=== PATIENT | female | born 1960 | race Caucasian/White ===

== ENCOUNTER 2017-07-03 09:06 | Emergency (ER) | payer OTHER, BC ==
[2017-07-03] MEDS: KETOROLAC 15 MG INJ IM (09:46)
== END 2017-07-03 11:30 | disposition home or self-care (01) ==
LOC: FTE 09:06
DX: M25.562 Pain in left knee (principal); I10 Essential (primary) hypertension
CPT/HCPCS: 29505; 73562; 73610; 73630-LT; 96372; 99284-25

== ENCOUNTER 2017-07-14 13:18 | Inpatient (IN) | payer OTHER ==
[2017-07-14] MEDS: AZITHROMYCIN 500MG/NS (PMX) 250 ML IV (14:03)
[2017-07-14 14:24] LABS: ABNORMAL IP MESSAGE 1; HEMATOCRIT 33.6 % (37.0-47.0); HEMOGLOBIN 11.3 g/dl (12.0-16.0); MEAN CORPUSCULAR HEMOGLOBIN 30.8 pg (29.0-33.0); MEAN CORPUSCULAR HGB CONC 33.6 g/dl (32.0-37.0); MEAN CORPUSCULAR VOLUME 91.6 fl (82.0-101.0); MEAN PLATELET VOLUME 10.1 fl (7.4-10.4); PLATELET COUNT 383 10^3/UL (140-415); RED BLOOD COUNT 3.67 10^6/ul (4.20-5.40); RED CELL DISTRIBUTION WIDTH 12.7 % (11.5-14.5)
[2017-07-14 14:25] LABS: ADD MAN DIFF? YES
[2017-07-14] MEDS: KETOROLAC 15 MG INJ IV (14:29)
[2017-07-14] MEDS: SODIUM CHLORIDE 0.9% 1L BAG IV* (14:29)
[2017-07-14] MEDS: ACETAMINOPHEN 325 MG TAB PO ×3 (14:29→21:35)
[2017-07-14] MEDS: CEFTRIAXONE 1 GM/50 ML (PMX) 50 ML IVPB (14:29)
[2017-07-14 14:33] LABS: ADD UMIC YES; UR ASCORBIC ACID NEGATIVE (NEGATIVE); UR BILIRUBIN (Dip) NEGATIVE (NEGATIVE); UR BLOOD (Dip) NEGATIVE (NEGATIVE); UR CLARITY SLIGHTLY CLOUDY (CLEAR); UR COLOR YELLOW (YELLOW); UR GLUCOSE (Dip) 2+ mg/dL (NEGATIVE); UR KETONES (Dip) NEGATIVE (NEGATIVE); UR LEUKOCYTE ESTERASE (Dip) NEGATIVE Leu/ul (NEGATIVE); UR NITRITE (Dip) NEGATIVE (NEGATIVE); UR RBC 3 /HPF (0-5); UR SPECIFIC GRAVITY (Dip) 1.018 (1.003-1.030); UR SQUAMOUS EPITHELIAL CELL FEW /HPF (FEW); UR TOTAL PROTEIN (Dip) 3+ mg/dl (NEGATIVE); UR UROBILINOGEN (Dip) NEGATIVE (NEGATIVE); UR WBC 13 /HPF (0-5)
[2017-07-14 14:41] LABS: INR 0.97
[2017-07-14 14:42] LABS: PARTIAL THROMBOPLASTIN TIME 30.6 Sec (25.0-35.0)
[2017-07-14 14:45] LABS: ALANINE AMINOTRANSFERASE 34 IU/L (13-69); ALBUMIN 3.4 g/dl (3.3-4.9); ALKALINE PHOSPHATASE 147 IU/L (42-121); ANION GAP 13 (8-16); ASPARTATE AMINO TRANSFERASE 23 IU/L (15-46); BILIRUBIN,INDIRECT 0.1 mg/dl (0-1.1); BILIRUBIN,TOTAL 0.1 mg/dl (0.2-1.3); BLOOD UREA NITROGEN 29 mg/dl (7-20); CALCIUM 8.7 mg/dl (8.4-10.2); CARBON DIOXIDE 28 mmol/L (21-31); CHLORIDE 104 mmol/L (97-110); CREATININE 1.58 mg/dl (0.44-1.00); GLUCOSE 196 mg/dl (70-220); POTASSIUM 4.2 mmol/L (3.5-5.1); SODIUM 141 mmol/L (135-144); TOTAL PROTEIN 6.8 g/dl (6.1-8.1)
[2017-07-14 14:45] LABS: LACTIC ACID 1.1 mmol/L (0.5-2.0)
[2017-07-14] MEDS: ALBUTEROL 0.5% (NEB) 2.5 MG/0.5 ML AMP INH (14:56)
[2017-07-14 14:57] LABS: BAND NEUTROPHILS #M 0.5 10^3/ul (0.0-0.6); BAND NEUTROPHILS % (M) 2 % (0-4); LYMPHOCYTES # 1.1 10^3/ul (0.8-2.9); LYMPHOCYTES #M 1.1 10^3/ul (0.8-2.9); LYMPHOCYTES % (M) 4 % (15-51); MONOCYTE # 1.1 10^3/ul (0.3-0.9); MONOCYTE #M 1.1 10^3/ul (0.3-0.9); MONOCYTES % (M) 4 % (0-11); SEG NEUT #M 25.3 10^3/ul (1.7-7.5); SEGMENTED NEUTROPHILS (M) % 90 % (39-77)
[2017-07-14 14:58] LABS: TROPONIN-I < 0.012 ng/ml (0.00-0.12)
[2017-07-14 16:55] LABS: LACTIC ACID 2.7 mmol/L (0.5-2.0)
[2017-07-14] MEDS: HYDROCODONE/APAP (5/325) TAB PO (17:21)
[2017-07-14] MEDS ORDERED: GLUCOSE GEL 15 GRAM TUBE PO ×2 (17:30)
[2017-07-14] MEDS ORDERED: ONDANSETRON 4 MG INJ IV ×2 (17:30)
[2017-07-14] MEDS ORDERED: GLUCAGON 1 MG INJ IM (17:30)
[2017-07-14] MEDS ORDERED: morphine 2 MG INJ IV (17:30)
[2017-07-14] MEDS ORDERED: DEXTROSE 50% 50 ML SYRINGE IV ×2 (17:30)
[2017-07-14] MEDS ORDERED: NACL 0.9% 3 ML SYG IV (17:30)
[2017-07-14] MEDS ORDERED: ACETAMINOPHEN 325 MG TAB PO (17:30)
[2017-07-14] MEDS ORDERED: LORAZEPAM 0.5 MG TAB PO (17:30)
[2017-07-14] MEDS ORDERED: SOD CHLORIDE 0.9% 1,000 ML IV (17:30)
[2017-07-14] MEDS ORDERED: GLUCOSE GEL 15 GRAM TUBE BUCCAL (17:30)
[2017-07-14 17:33] LABS: HEMOGLOBIN A1C 7.5 % (0-5.9)
[2017-07-14 17:39] LABS: B-TYPE NATRIURETIC PEPTIDE 5190 PG/ML (0-125)
[2017-07-14 17:45] LABS: FREE T4 (FREE THYROXINE) 1.05 ng/dl (0.64-1.79)
[2017-07-14 17:55] LABS: URIC ACID 4.2 mg/dl (3.1-7.9)
[2017-07-14] MEDS: INSULIN ASPART [NOVOLOG] 3 ML PEN SC ×3 (18:40→21:46)
[2017-07-14 18:55] LABS: LACTIC ACID 3.7 mmol/L (0.5-2.0)
[2017-07-14] MEDS: HYPOGLYCEMIA PROTOCOL when Glucose is <70 mg/dL or symptomatic <90 mg/dL. XX (19:30)
[2017-07-14] MEDS: Discontinue current oral sulfonylureas (glyburide, glipizide, and/or glimepiride) prior to XX (19:30)
[2017-07-14] MEDS: GABAPENTIN 300 MG CAP PO (21:36)
[2017-07-14] MEDS: NIFEdipine (XL) 60 MG TAB PO (21:37)
[2017-07-14] MEDS: CHLORDIAZEPOXIDE 25 MG CAP PO (21:44)
[2017-07-14] MEDS: INSULIN GLARGINE [LANtus] 3 ML PEN SC (21:46)
[2017-07-14] MEDS: HEPARIN 5,000 UNIT/0.5 ML VIAL SC (21:48)
[2017-07-14] MEDS: ALBUTEROL/IPRATROPIUM (NEB) 3 ML AMP HHN (22:25)
[2017-07-14 22:35] LABS: LACTIC ACID 1.6 mmol/L (0.5-2.0)
[2017-07-14] MEDS: GUAIFENESIN/CODEINE 5ML CUP PO (23:33)
[2017-07-15] MEDS: ACCU-CHEK XX (02:37)
[2017-07-15 05:36] LABS: ADD MAN DIFF? NO
[2017-07-15 05:39] LABS: WHITE BLOOD COUNT 22.3 10^3/ul (4.8-10.8)
[2017-07-15 05:39] LABS: BASOPHIL # 0.1 10^3/ul (0.0-0.1); BASOPHILS % 0.4 % (0.0-2.0); EOSINOPHILS # 0.1 10^3/ul (0.0-0.5); EOSINOPHILS % 0.5 % (0.0-7.0); HEMATOCRIT 30.5 % (37.0-47.0); HEMOGLOBIN 9.9 g/dl (12.0-16.0); LYMPHOCYTES # 1.9 10^3/ul (0.8-2.9); LYMPHOCYTES % 8.7 % (15.0-51.0); MEAN CORPUSCULAR HEMOGLOBIN 30.7 pg (29.0-33.0); MEAN CORPUSCULAR HGB CONC 32.5 g/dl (32.0-37.0); MEAN CORPUSCULAR VOLUME 94.4 fl (82.0-101.0); MEAN PLATELET VOLUME 10.6 fl (7.4-10.4); MONOCYTE # 1.3 10^3/ul (0.3-0.9); MONOCYTES % 5.9 % (0.0-11.0); NEUTROPHIL # 18.6 10^3/ul (1.6-7.5); NEUTROPHILS % 83.5 % (39.0-77.0); PLATELET COUNT 331 10^3/UL (140-415); RED BLOOD COUNT 3.23 10^6/ul (4.20-5.40); RED CELL DISTRIBUTION WIDTH 12.8 % (11.5-14.5)
[2017-07-15] MEDS ORDERED: LOPERAMIDE 2 MG CAP PO (06:00)
[2017-07-15] MEDS: LORAZEPAM 2 MG INJ IV (06:00)
[2017-07-15] MEDS: HEPARIN 5,000 UNIT/0.5 ML VIAL SC ×3 (06:21→21:42)
[2017-07-15] MEDS: LOPERAMIDE 2 MG CAP PO (06:26)
[2017-07-15 06:38] LABS: ALANINE AMINOTRANSFERASE 29 IU/L (13-69); ALBUMIN 2.9 g/dl (3.3-4.9); ALBUMIN/GLOBULIN RATIO 0.93; ALKALINE PHOSPHATASE 124 IU/L (42-121); ANION GAP 12 (8-16); ASPARTATE AMINO TRANSFERASE 18 IU/L (15-46); BLOOD UREA NITROGEN 33 mg/dl (7-20); CALCIUM 8.3 mg/dl (8.4-10.2); CARBON DIOXIDE 26 mmol/L (21-31); CHLORIDE 108 mmol/L (97-110); CREATININE 1.76 mg/dl (0.44-1.00); GLUCOSE 255 mg/dl (70-220); POTASSIUM 3.9 mmol/L (3.5-5.1); SODIUM 142 mmol/L (135-144)
[2017-07-15 06:40] LABS: CHOL/HDL RATIO 2.7 RATIO; CHOLESTEROL 156 mg/dl (100-200); HDL CHOLESTEROL 57 mg/dl (37-92); LDL CHOLESTEROL,CALCULATED 66 mg/dl; MAGNESIUM 1.9 mg/dl (1.7-2.5); TRIGLYCERIDES 164 mg/dl (0-149)
[2017-07-15 06:40] LABS: PHOSPHORUS 5.3 mg/dl (2.5-4.9)
[2017-07-15] MEDS: CHLORDIAZEPOXIDE 25 MG CAP PO ×3 (08:29→21:39)
[2017-07-15] MEDS: NIFEdipine (XL) 60 MG TAB PO (08:30)
[2017-07-15] MEDS: THIAMINE 100 MG TAB PO (08:30)
[2017-07-15] MEDS: GABAPENTIN 300 MG CAP PO ×3 (08:30→21:39)
[2017-07-15] MEDS: FOLIC ACID 1 MG TAB PO (08:30)
[2017-07-15] MEDS: HYDROCODONE/APAP (5/325) TAB PO ×2 (08:37→14:47)
[2017-07-15] MEDS: INSULIN ASPART [NOVOLOG] 3 ML PEN SC ×7 (08:46→21:41)
[2017-07-15] MEDS: CEFTRIAXONE 1 GM/50 ML (PMX) 50 ML IVPB (13:25)
[2017-07-15] MEDS: AZITHROMYCIN 500MG/NS (PMX) 250 ML IVPB (15:11)
[2017-07-15] MEDS: GUAIFENESIN 20 MG/ML 5ML CUP PO ×2 (15:20→19:43)
[2017-07-15] MEDS: SOD CHLORIDE 0.9% 500 ML IV (16:31)
[2017-07-15 17:45] LABS: HAAIG REFLEX REFLEX FILED
[2017-07-15 19:31] LABS: HEPATITIS B SURFACE ANTIGEN NEGATIVE (NEGATIVE)
[2017-07-15] MEDS: morphine LIQ (10 MG/5 ML) CUP PO (19:48)
[2017-07-15 19:49] LABS: HEPATITIS B CORE ANTIBODY NEGATIVE (NEGATIVE); HEPATITIS C VIRAL ANTIBODY NEGATIVE (NEGATIVE)
[2017-07-15] MEDS: ALBUTEROL/IPRATROPIUM (NEB) 3 ML AMP HHN ×2 (20:06→21:30)
[2017-07-15 20:31] LABS: Allen Test ACCEPTAB; Arterial Base Excess -4.4 mmol/L (-3.0-3); Arterial Blood Gas Oxygen Sat 92.9 mmHG (95.0-98.0); Arterial COHb 0.1 % (0.0-3.0); Arterial Fraction of Oxyhgb 92.7 % (93.0-99.0); Arterial HCO3 21.3 mmol/L (22.0-26.0); Arterial MetHb 0.1 % (0.0-1.5); Arterial Total Hemglobin 11.9 g/dl (12.0-18.0); Arterial pCO2 41.8 mmhg (35-45); MODE MASK - NRB; Site Right Radial
[2017-07-15] MEDS: ACETYLCYSTEINE 20% 4 ML VIAL NEB (21:31)
[2017-07-15] MEDS: INSULIN GLARGINE [LANtus] 3 ML PEN SC (21:42)
[2017-07-15] MEDS: METHYLPREDNISOLONE 125 MG INJ IV (23:13)
[2017-07-16 00:06] LABS: SODIUM,URINE RANDOM 14 mmol/L (30-90)
[2017-07-16] MEDS: ACETYLCYSTEINE 20% 4 ML VIAL NEB ×2 (00:56→05:08)
[2017-07-16] MEDS: ALBUTEROL/IPRATROPIUM (NEB) 3 ML AMP HHN ×9 (00:56→21:54)
[2017-07-16] MEDS: ACCU-CHEK XX (02:00)
[2017-07-16 05:34] LABS: ADD MAN DIFF? NO
[2017-07-16 05:39] LABS: WHITE BLOOD COUNT 18.3 10^3/ul (4.8-10.8)
[2017-07-16 05:39] LABS: BASOPHILS % 0.1 % (0.0-2.0); HEMATOCRIT 29.1 % (37.0-47.0); HEMOGLOBIN 9.3 g/dl (12.0-16.0); LYMPHOCYTES % 5.5 % (15.0-51.0); MEAN CORPUSCULAR HEMOGLOBIN 29.8 pg (29.0-33.0); MEAN CORPUSCULAR VOLUME 93.3 fl (82.0-101.0); MEAN PLATELET VOLUME 10.4 fl (7.4-10.4); MONOCYTE # 0.3 10^3/ul (0.3-0.9); MONOCYTES % 1.6 % (0.0-11.0); NEUTROPHIL # 16.7 10^3/ul (1.6-7.5); NEUTROPHILS % 91.3 % (39.0-77.0); PLATELET COUNT 339 10^3/UL (140-415); RED BLOOD COUNT 3.12 10^6/ul (4.20-5.40); RED CELL DISTRIBUTION WIDTH 12.9 % (11.5-14.5)
[2017-07-16 05:53] LABS: ANION GAP 18 (8-16); BLOOD UREA NITROGEN 43 mg/dl (7-20); CALCIUM 8.6 mg/dl (8.4-10.2); CARBON DIOXIDE 20 mmol/L (21-31); CHLORIDE 106 mmol/L (97-110); CREATININE 2.53 mg/dl (0.44-1.00); GLUCOSE 280 mg/dl (70-220); POTASSIUM 5.1 mmol/L (3.5-5.1); SODIUM 139 mmol/L (135-144)
[2017-07-16] MEDS: HEPARIN 5,000 UNIT/0.5 ML VIAL SC ×3 (06:08→21:15)
[2017-07-16] MEDS: INSULIN ASPART [NOVOLOG] 3 ML PEN SC ×8 (08:21→21:21)
[2017-07-16] MEDS: NIFEdipine (XL) 30 MG TAB PO (09:25)
[2017-07-16] MEDS: GUAIFENESIN 20 MG/ML 5ML CUP PO ×2 (09:26→20:51)
[2017-07-16] MEDS: THIAMINE 100 MG TAB PO (09:26)
[2017-07-16] MEDS: CHLORDIAZEPOXIDE 25 MG CAP PO ×3 (09:26→20:51)
[2017-07-16] MEDS: GABAPENTIN 300 MG CAP PO ×3 (09:26→20:51)
[2017-07-16] MEDS: FOLIC ACID 1 MG TAB PO (09:26)
[2017-07-16] MEDS: morphine LIQ (10 MG/5 ML) CUP PO ×2 (09:28→21:07)
[2017-07-16] MEDS: NA BICARBONATE 650 MG TAB PO ×2 (11:27→22:19)
[2017-07-16] MEDS: METHYLPREDNISOLONE 125 MG INJ IV ×3 (11:27→21:17)
[2017-07-16 12:16] LABS: AADO2 Arterial 575.6 mmHg (7.0-24.0); Allen Test ACCEPTAB; Arterial Base Excess -6.2 mmol/L (-3.0-3); Arterial Blood Gas Oxygen Sat 96.2 mmHG (95.0-98.0); Arterial COHb 0.3 % (0.0-3.0); Arterial Fraction of Oxyhgb 95.8 % (93.0-99.0); Arterial MetHb 0.1 % (0.0-1.5); Arterial Total Hemglobin 11.5 g/dl (12.0-18.0); MODE MASK - NRB; Site Left Radial
[2017-07-16] MEDS: CEFTRIAXONE 1 GM/50 ML (PMX) 50 ML IVPB (13:30)
[2017-07-16] MEDS: AZITHROMYCIN 500MG/NS (PMX) 250 ML IVPB (16:19)
[2017-07-16] MEDS: INSULIN GLARGINE [LANtus] 3 ML PEN SC (20:57)
[2017-07-16] MEDS: DEXTROSE 5%-0.45% NACL 1,000 ML IV (22:20)
[2017-07-17] MEDS: ALBUTEROL/IPRATROPIUM (NEB) 3 ML AMP HHN ×6 (01:00→20:51)
[2017-07-17] MEDS: ACCU-CHEK XX (02:08)
[2017-07-17] MEDS: INSULIN ASPART [NOVOLOG] 3 ML PEN SC ×10 (02:20→17:10)
[2017-07-17] MEDS ORDERED: INSULIN ASPART [NOVOLOG] 3 ML PEN SC ×2 (06:00→17:35)
[2017-07-17] MEDS: METHYLPREDNISOLONE 125 MG INJ IV ×2 (06:21→13:31)
[2017-07-17] MEDS: HEPARIN 5,000 UNIT/0.5 ML VIAL SC ×3 (06:23→21:17)
[2017-07-17 08:30] LABS: ADD MAN DIFF? NO
[2017-07-17 08:32] LABS: BASOPHILS % 0.2 % (0.0-2.0); HEMATOCRIT 30.7 % (37.0-47.0); LYMPHOCYTES # 0.9 10^3/ul (0.8-2.9); LYMPHOCYTES % 8.3 % (15.0-51.0); MEAN CORPUSCULAR HEMOGLOBIN 30.3 pg (29.0-33.0); MEAN CORPUSCULAR HGB CONC 32.6 g/dl (32.0-37.0); MEAN PLATELET VOLUME 10.7 fl (7.4-10.4); MONOCYTE # 0.5 10^3/ul (0.3-0.9); MONOCYTES % 4.8 % (0.0-11.0); NEUTROPHILS % 84.3 % (39.0-77.0); PLATELET COUNT 411 10^3/UL (140-415); RED CELL DISTRIBUTION WIDTH 12.4 % (11.5-14.5)
[2017-07-17 08:32] LABS: WHITE BLOOD COUNT 10.7 10^3/ul (4.8-10.8)
[2017-07-17 09:02] LABS: ANION GAP 18 (8-16); BLOOD UREA NITROGEN 57 mg/dl (7-20); CALCIUM 9.1 mg/dl (8.4-10.2); CARBON DIOXIDE 21 mmol/L (21-31); CHLORIDE 106 mmol/L (97-110); GLUCOSE 320 mg/dl (70-220); POTASSIUM 4.1 mmol/L (3.5-5.1); SODIUM 141 mmol/L (135-144)
[2017-07-17] MEDS: NA BICARBONATE 650 MG TAB PO ×3 (09:18→20:37)
[2017-07-17] MEDS: FOLIC ACID 1 MG TAB PO (09:19)
[2017-07-17] MEDS: THIAMINE 100 MG TAB PO (09:19)
[2017-07-17] MEDS: NIFEdipine (XL) 30 MG TAB PO (09:19)
[2017-07-17] MEDS: GABAPENTIN 300 MG CAP PO ×3 (09:19→20:37)
[2017-07-17] MEDS: CHLORDIAZEPOXIDE 25 MG CAP PO ×3 (09:19→20:37)
[2017-07-17 10:18] LABS: AADO2 Arterial 179.1 mmHg (7.0-24.0); Allen Test ACCEPTAB; Arterial Base Excess -5.7 mmol/L (-3.0-3); Arterial Blood Gas Oxygen Sat 95.5 mmHG (95.0-98.0); Arterial COHb 0.3 % (0.0-3.0); Arterial Fraction of Oxyhgb 95.2 % (93.0-99.0); Arterial HCO3 20.6 mmol/L (22.0-26.0); Arterial MetHb 0 % (0.0-1.5); Arterial Total Hemglobin 12.5 g/dl (12.0-18.0); Arterial pCO2 43.5 mmhg (35-45); MODE MASK - SIMPLE; Site Right Radial
[2017-07-17] MEDS: NPH, HUMAN INSULIN ISOPHANE 3ML VIAL SC ×2 (13:26→21:14)
[2017-07-17] MEDS: CEFTRIAXONE 1 GM/50 ML (PMX) 50 ML IVPB (13:30)
[2017-07-17] MEDS: FUROSEMIDE 40 MG INJ IV (13:31)
[2017-07-17] MEDS: DEXTROSE 5%-0.45% NACL 1,000 ML IV (13:32)
[2017-07-17] MEDS: NA BICARBONATE 8.4% 50 ML SYG IV (13:36)
[2017-07-17] MEDS: AZITHROMYCIN 500MG/NS (PMX) 250 ML IVPB (14:18)
[2017-07-17 14:51] LABS: CREATININE, RANDOM URINE 213 mg/dL (20-320); MICROALBUMIN 574.9 mg/dL; MICROALBUMIN/CREATININE RATIO 2699 (<30)
[2017-07-17] MEDS: Insulin NOVOLOG SS MILD Algorithm (SS with meals and bedtime) SC ×2 (17:08→20:41)
[2017-07-17] MEDS: INSULIN GLARGINE [LANtus] 3 ML PEN SC (20:40)
[2017-07-18] MEDS: ALBUTEROL/IPRATROPIUM (NEB) 3 ML AMP HHN ×6 (01:00→20:06)
[2017-07-18] MEDS: ACCUCHECK AT 2AM (Patients on SS coverage) XX (02:00)
[2017-07-18] MEDS: HEPARIN 5,000 UNIT/0.5 ML VIAL SC ×3 (06:21→21:07)
[2017-07-18] MEDS: NPH, HUMAN INSULIN ISOPHANE 3ML VIAL SC ×3 (06:22→21:06)
[2017-07-18] MEDS: Insulin NOVOLOG SS MILD Algorithm (SS with meals and bedtime) SC ×4 (06:32→20:23)
[2017-07-18] MEDS: THIAMINE 100 MG TAB PO (08:13)
[2017-07-18] MEDS: CHLORDIAZEPOXIDE 25 MG CAP PO ×2 (08:13→20:33)
[2017-07-18] MEDS: METHYLPREDNISOLONE 40 MG INJ IV (08:13)
[2017-07-18] MEDS: GABAPENTIN 300 MG CAP PO ×3 (08:13→20:24)
[2017-07-18] MEDS: NIFEdipine (XL) 30 MG TAB PO (08:14)
[2017-07-18] MEDS: NA BICARBONATE 650 MG TAB PO ×2 (08:14→13:20)
[2017-07-18] MEDS: FOLIC ACID 1 MG TAB PO (08:15)
[2017-07-18] MEDS: INSULIN ASPART [NOVOLOG] 3 ML PEN SC ×3 (08:24→17:29)
[2017-07-18 08:39] LABS: AADO2 Arterial 129.4 mmHg (7.0-24.0); Allen Test ACCEPTAB; Arterial Base Excess 0.3 mmol/L (-3.0-3); Arterial Blood Gas Oxygen Sat 94.6 mmHG (95.0-98.0); Arterial COHb 0.3 % (0.0-3.0); Arterial HCO3 24.9 mmol/L (22.0-26.0); Arterial MetHb 0.3 % (0.0-1.5); Arterial Total Hemglobin 11.6 g/dl (12.0-18.0); Arterial pCO2 40.4 mmhg (35-45); MODE NASAL CANNULA; Site Right Radial
[2017-07-18 08:45] LABS: ADD MAN DIFF? NO
[2017-07-18 09:02] LABS: BASOPHILS % 0.2 % (0.0-2.0); HEMATOCRIT 33.4 % (37.0-47.0); LYMPHOCYTES % 14.2 % (15.0-51.0); MEAN CORPUSCULAR HEMOGLOBIN 30.4 pg (29.0-33.0); MEAN CORPUSCULAR HGB CONC 32.9 g/dl (32.0-37.0); MEAN CORPUSCULAR VOLUME 92.3 fl (82.0-101.0); MEAN PLATELET VOLUME 10.5 fl (7.4-10.4); MONOCYTE # 1.1 10^3/ul (0.3-0.9); MONOCYTES % 7.4 % (0.0-11.0); NEUTROPHIL # 10.6 10^3/ul (1.6-7.5); NEUTROPHILS % 74.7 % (39.0-77.0); PLATELET COUNT 475 10^3/UL (140-415); RED BLOOD COUNT 3.62 10^6/ul (4.20-5.40); RED CELL DISTRIBUTION WIDTH 12.3 % (11.5-14.5)
[2017-07-18 09:02] LABS: WHITE BLOOD COUNT 14.1 10^3/ul (4.8-10.8)
[2017-07-18 09:22] LABS: ANION GAP 15 (8-16); BLOOD UREA NITROGEN 57 mg/dl (7-20); CALCIUM 9.3 mg/dl (8.4-10.2); CARBON DIOXIDE 28 mmol/L (21-31); CHLORIDE 107 mmol/L (97-110); CREATININE 1.54 mg/dl (0.44-1.00); GLUCOSE 165 mg/dl (70-220); POTASSIUM 3.7 mmol/L (3.5-5.1); SODIUM 146 mmol/L (135-144)
[2017-07-18] MEDS: HYDROCODONE/APAP (5/325) TAB PO ×2 (11:06→21:59)
[2017-07-18] MEDS: LEVOFLOXACIN 500 MG TAB PO (14:18)
[2017-07-18] MEDS: hydrALAzine 20 MG INJ IV (17:29)
[2017-07-18] MEDS: ACETYLCYSTEINE 20% 4 ML VIAL NEB (20:10)
[2017-07-18] MEDS: INSULIN GLARGINE [LANtus] 3 ML PEN SC (20:24)
[2017-07-19] MEDS: ALBUTEROL/IPRATROPIUM (NEB) 3 ML AMP HHN ×6 (00:51→20:54)
[2017-07-19] MEDS: ACCUCHECK AT 2AM (Patients on SS coverage) XX (02:00)
[2017-07-19] MEDS: LEVOFLOXACIN 500 MG TAB PO (05:32)
[2017-07-19] MEDS: HEPARIN 5,000 UNIT/0.5 ML VIAL SC ×3 (05:33→20:36)
[2017-07-19] MEDS: NPH, HUMAN INSULIN ISOPHANE 3ML VIAL SC (05:34)
[2017-07-19] MEDS: Insulin NOVOLOG SS MILD Algorithm (SS with meals and bedtime) SC ×4 (07:17→20:37)
[2017-07-19 07:58] LABS: ADD MAN DIFF? NO
[2017-07-19 08:04] LABS: WHITE BLOOD COUNT 11.9 10^3/ul (4.8-10.8)
[2017-07-19 08:04] LABS: ABNORMAL IP MESSAGE 1; BASOPHILS % 0.3 % (0.0-2.0); EOSINOPHILS # 0.3 10^3/ul (0.0-0.5); EOSINOPHILS % 2.7 % (0.0-7.0); HEMATOCRIT 32.8 % (37.0-47.0); HEMOGLOBIN 10.7 g/dl (12.0-16.0); LYMPHOCYTES % 33.5 % (15.0-51.0); MEAN CORPUSCULAR HEMOGLOBIN 30.1 pg (29.0-33.0); MEAN CORPUSCULAR HGB CONC 32.6 g/dl (32.0-37.0); MEAN CORPUSCULAR VOLUME 92.4 fl (82.0-101.0); MONOCYTE # 1.1 10^3/ul (0.3-0.9); MONOCYTES % 8.9 % (0.0-11.0); NEUTROPHIL # 5.8 10^3/ul (1.6-7.5); NEUTROPHILS % 48.9 % (39.0-77.0); PLATELET COUNT 467 10^3/UL (140-415); RED BLOOD COUNT 3.55 10^6/ul (4.20-5.40); RED CELL DISTRIBUTION WIDTH 12.4 % (11.5-14.5)
[2017-07-19 08:10] LABS: POSITIVE DIFF @See below
[2017-07-19] MEDS: METHYLPREDNISOLONE 40 MG INJ IV (08:12)
[2017-07-19] MEDS: FOLIC ACID 1 MG TAB PO (08:13)
[2017-07-19] MEDS: THIAMINE 100 MG TAB PO (08:13)
[2017-07-19] MEDS: CHLORDIAZEPOXIDE 25 MG CAP PO (08:13)
[2017-07-19] MEDS: NIFEdipine (XL) 30 MG TAB PO ×2 (08:14→16:22)
[2017-07-19] MEDS: GABAPENTIN 300 MG CAP PO ×3 (08:14→20:20)
[2017-07-19] MEDS: ACETYLCYSTEINE 20% 4 ML VIAL NEB ×2 (08:15→20:54)
[2017-07-19] MEDS: INSULIN ASPART [NOVOLOG] 3 ML PEN SC ×3 (08:15→17:44)
[2017-07-19 08:27] LABS: ANION GAP 12 (8-16); BLOOD UREA NITROGEN 47 mg/dl (7-20); CALCIUM 8.9 mg/dl (8.4-10.2); CARBON DIOXIDE 28 mmol/L (21-31); CHLORIDE 109 mmol/L (97-110); CREATININE 1.43 mg/dl (0.44-1.00); GLUCOSE 167 mg/dl (70-220); POTASSIUM 3.5 mmol/L (3.5-5.1); SODIUM 145 mmol/L (135-144)
[2017-07-19] MEDS: GUAIFENESIN 20 MG/ML 5ML CUP PO (11:53)
[2017-07-19] MEDS: HYDROCODONE/APAP (5/325) TAB PO (11:54)
[2017-07-19] MEDS: hydrALAzine 20 MG INJ IV ×2 (11:55→20:20)
[2017-07-19] MEDS: HYDROCHLOROTHIAZIDE 25 MG TAB PO (17:47)
[2017-07-19] MEDS: INSULIN GLARGINE [LANtus] 3 ML PEN SC (20:37)
[2017-07-20] MEDS: GUAIFENESIN 20 MG/ML 5ML CUP PO ×2 (00:38→21:05)
[2017-07-20] MEDS: HYDROCODONE/APAP (5/325) TAB PO ×2 (00:38→15:58)
[2017-07-20] MEDS: ALBUTEROL/IPRATROPIUM (NEB) 3 ML AMP HHN ×6 (00:53→20:20)
[2017-07-20] MEDS: ACCUCHECK AT 2AM (Patients on SS coverage) XX (01:44)
[2017-07-20 05:02] LABS: WHITE BLOOD COUNT 14.1 10^3/ul (4.8-10.8)
[2017-07-20 05:02] LABS: ABNORMAL IP MESSAGE 1; HEMATOCRIT 32.5 % (37.0-47.0); HEMOGLOBIN 10.6 g/dl (12.0-16.0); MEAN CORPUSCULAR HEMOGLOBIN 29.7 pg (29.0-33.0); MEAN CORPUSCULAR HGB CONC 32.6 g/dl (32.0-37.0); MEAN PLATELET VOLUME 9.8 fl (7.4-10.4); PLATELET COUNT 466 10^3/UL (140-415); RED BLOOD COUNT 3.57 10^6/ul (4.20-5.40); RED CELL DISTRIBUTION WIDTH 12.3 % (11.5-14.5)
[2017-07-20 05:04] LABS: ADD MAN DIFF? YES; POSITIVE DIFF @See below
[2017-07-20] MEDS: HEPARIN 5,000 UNIT/0.5 ML VIAL SC ×3 (05:23→20:57)
[2017-07-20] MEDS: HYDROCHLOROTHIAZIDE 25 MG TAB PO (05:23)
[2017-07-20] MEDS: LEVOFLOXACIN 500 MG TAB PO (05:23)
[2017-07-20 05:35] LABS: ANION GAP 13 (8-16); BLOOD UREA NITROGEN 47 mg/dl (7-20); CALCIUM 8.8 mg/dl (8.4-10.2); CARBON DIOXIDE 28 mmol/L (21-31); CHLORIDE 107 mmol/L (97-110); CREATININE 1.56 mg/dl (0.44-1.00); GLUCOSE 189 mg/dl (70-220); POTASSIUM 3.5 mmol/L (3.5-5.1); SODIUM 144 mmol/L (135-144)
[2017-07-20 05:36] LABS: BAND NEUTROPHILS #M 0.1 10^3/ul (0.0-0.6); BAND NEUTROPHILS % (M) 1 % (0-4); EOSINOPHILS % (M) 2 % (0-7); LYMPHOCYTES #M 4.5 10^3/ul (0.8-2.9); LYMPHOCYTES % (M) 32 % (15-51); METAMYELOCYTES #M 0.1 10^3/ul (0.0-0.0); METAMYELOCYTES %M 1 % (0-0); MONOCYTE #M 0.7 10^3/ul (0.3-0.9); MONOCYTES % (M) 5 % (0-11); MYELOCYTES #M 0.1 10^3/ul (0.0-0.0); MYELOCYTES % (M) 1 % (0-0); PLATELET ESTIMATE INCREASED; POLYCHROMASIA 1+ (0-0); SEG NEUT #M 8.2 10^3/ul (1.6-7.5); SEGMENTED NEUTROPHILS (M) % 58 % (39-77); SMUDGE%M 11 % (0-0)
[2017-07-20] MEDS: Insulin NOVOLOG SS MILD Algorithm (SS with meals and bedtime) SC ×4 (08:54→20:56)
[2017-07-20] MEDS: INSULIN ASPART [NOVOLOG] 3 ML PEN SC ×3 (08:56→18:13)
[2017-07-20] MEDS: GABAPENTIN 300 MG CAP PO ×3 (09:39→20:57)
[2017-07-20] MEDS: THIAMINE 100 MG TAB PO (09:39)
[2017-07-20] MEDS: FOLIC ACID 1 MG TAB PO (09:39)
[2017-07-20] MEDS: NIFEdipine (XL) 60 MG TAB PO (09:40)
[2017-07-20] MEDS: ACETYLCYSTEINE 20% 4 ML VIAL NEB ×2 (10:17→20:30)
[2017-07-20] MEDS ORDERED: hydrALAzine 20 MG INJ IV (17:30)
[2017-07-20] MEDS: INSULIN GLARGINE [LANtus] 3 ML PEN SC (20:56)
[2017-07-21] MEDS: ACCUCHECK AT 2AM (Patients on SS coverage) XX (01:45)
[2017-07-21] MEDS: ALBUTEROL/IPRATROPIUM (NEB) 3 ML AMP HHN ×6 (02:11→20:06)
[2017-07-21] MEDS: HEPARIN 5,000 UNIT/0.5 ML VIAL SC ×3 (05:55→21:12)
[2017-07-21] MEDS: LEVOFLOXACIN 500 MG TAB PO (05:56)
[2017-07-21] MEDS: GUAIFENESIN 20 MG/ML 5ML CUP PO (06:10)
[2017-07-21 06:24] LABS: ABNORMAL IP MESSAGE 1; HEMATOCRIT 36.4 % (37.0-47.0); HEMOGLOBIN 11.7 g/dl (12.0-16.0); MEAN CORPUSCULAR HEMOGLOBIN 30.4 pg (29.0-33.0); MEAN CORPUSCULAR HGB CONC 32.1 g/dl (32.0-37.0); MEAN CORPUSCULAR VOLUME 94.5 fl (82.0-101.0); MEAN PLATELET VOLUME 10.5 fl (7.4-10.4); PLATELET COUNT 507 10^3/UL (140-415); RED BLOOD COUNT 3.85 10^6/ul (4.20-5.40); RED CELL DISTRIBUTION WIDTH 12.5 % (11.5-14.5)
[2017-07-21 06:24] LABS: WHITE BLOOD COUNT 12.7 10^3/ul (4.8-10.8)
[2017-07-21 06:48] LABS: POSITIVE DIFF @See below
[2017-07-21 06:49] LABS: ADD MAN DIFF? YES
[2017-07-21 06:54] LABS: ANION GAP 14 (8-16); BLOOD UREA NITROGEN 43 mg/dl (7-20); CALCIUM 9.3 mg/dl (8.4-10.2); CARBON DIOXIDE 29 mmol/L (21-31); CHLORIDE 106 mmol/L (97-110); CREATININE 1.27 mg/dl (0.44-1.00); GLUCOSE 126 mg/dl (70-220); SODIUM 145 mmol/L (135-144)
[2017-07-21 08:14] LABS: ANISOCYTOSIS 1+ (0-0); BAND NEUTROPHILS #M 0.3 10^3/ul (0.0-0.6); BAND NEUTROPHILS % (M) 3 % (0-4); EOSINOPHILS % (M) 12 % (0-7); ERYTHROBLAST% (NRBC) (M) 1 % (0-0); GIANT THROMBO% (M) 1 % (0-0); LYMPHOCYTES #M 4.5 10^3/ul (0.8-2.9); LYMPHOCYTES % (M) 36 % (15-51); MICROCYTOSIS 1+ (0-0); MONOCYTE #M 0.5 10^3/ul (0.3-0.9); MONOCYTES % (M) 4 % (0-11); MYELOCYTES #M 0.3 10^3/ul (0.0-0.0); MYELOCYTES % (M) 3 % (0-0); PLATELET ESTIMATE INCREASED; POLYCHROMASIA 1+ (0-0); SEG NEUT #M 5.4 10^3/ul (1.6-7.5); SEGMENTED NEUTROPHILS (M) % 42 % (39-77); SMUDGE%M 9 % (0-0)
[2017-07-21] MEDS: Insulin NOVOLOG SS MILD Algorithm (SS with meals and bedtime) SC ×4 (08:15→21:03)
[2017-07-21] MEDS: FOLIC ACID 1 MG TAB PO (08:16)
[2017-07-21] MEDS: GABAPENTIN 300 MG CAP PO ×3 (08:16→20:56)
[2017-07-21] MEDS: INSULIN ASPART [NOVOLOG] 3 ML PEN SC ×3 (08:16→17:26)
[2017-07-21] MEDS: THIAMINE 100 MG TAB PO (08:17)
[2017-07-21] MEDS: NIFEdipine (XL) 60 MG TAB PO (08:17)
[2017-07-21] MEDS: ACETYLCYSTEINE 20% 4 ML VIAL NEB ×2 (09:18→20:05)
[2017-07-21] MEDS: HYDROCODONE/APAP (5/325) TAB PO ×2 (12:13→21:10)
[2017-07-21] MEDS: INSULIN GLARGINE [LANtus] 3 ML PEN SC (21:01)
[2017-07-22] MEDS: ALBUTEROL/IPRATROPIUM (NEB) 3 ML AMP HHN ×6 (01:23→21:12)
[2017-07-22] MEDS: ACCUCHECK AT 2AM (Patients on SS coverage) XX (02:00)
[2017-07-22] MEDS: LEVOFLOXACIN 500 MG TAB PO (05:31)
[2017-07-22] MEDS: HEPARIN 5,000 UNIT/0.5 ML VIAL SC ×3 (05:32→21:52)
[2017-07-22 05:34] LABS: WHITE BLOOD COUNT 12.1 10^3/ul (4.8-10.8)
[2017-07-22 05:34] LABS: ABNORMAL IP MESSAGE 1; HEMATOCRIT 35.5 % (37.0-47.0); HEMOGLOBIN 11.5 g/dl (12.0-16.0); MEAN CORPUSCULAR HEMOGLOBIN 30.4 pg (29.0-33.0); MEAN CORPUSCULAR HGB CONC 32.4 g/dl (32.0-37.0); MEAN CORPUSCULAR VOLUME 93.9 fl (82.0-101.0); MEAN PLATELET VOLUME 9.9 fl (7.4-10.4); PLATELET COUNT 502 10^3/UL (140-415); RED BLOOD COUNT 3.78 10^6/ul (4.20-5.40); RED CELL DISTRIBUTION WIDTH 12.6 % (11.5-14.5)
[2017-07-22] MEDS: HYDROCODONE/APAP (5/325) TAB PO ×3 (05:37→22:51)
[2017-07-22 05:43] LABS: POSITIVE DIFF @See below
[2017-07-22 05:44] LABS: ADD MAN DIFF? YES
[2017-07-22 06:04] LABS: ANION GAP 12 (8-16); BLOOD UREA NITROGEN 42 mg/dl (7-20); CALCIUM 8.8 mg/dl (8.4-10.2); CARBON DIOXIDE 31 mmol/L (21-31); CHLORIDE 105 mmol/L (97-110); GLUCOSE 212 mg/dl (70-220); POTASSIUM 4.2 mmol/L (3.5-5.1); SODIUM 144 mmol/L (135-144)
[2017-07-22] MEDS: Insulin NOVOLOG SS MILD Algorithm (SS with meals and bedtime) SC ×4 (08:11→21:00)
[2017-07-22] MEDS: INSULIN ASPART [NOVOLOG] 3 ML PEN SC ×3 (08:15→17:25)
[2017-07-22] MEDS: GABAPENTIN 300 MG CAP PO ×3 (08:22→20:22)
[2017-07-22] MEDS: FOLIC ACID 1 MG TAB PO (08:22)
[2017-07-22] MEDS: NIFEdipine (XL) 60 MG TAB PO (08:22)
[2017-07-22] MEDS: LOSARTAN 25 MG TAB PO (08:22)
[2017-07-22] MEDS: THIAMINE 100 MG TAB PO (08:22)
[2017-07-22] MEDS: ACETYLCYSTEINE 20% 4 ML VIAL NEB ×2 (08:34→21:12)
[2017-07-22 09:44] LABS: ANISOCYTOSIS 1+ (0-0); EOSINOPHILS % (M) 11 % (0-7); LYMPHOCYTES #M 2.9 10^3/ul (0.8-2.9); LYMPHOCYTES % (M) 24 % (15-51); MICROCYTOSIS 1+ (0-0); MONOCYTE #M 0.9 10^3/ul (0.3-0.9); MONOCYTES % (M) 8 % (0-11); MYELOCYTES #M 0.1 10^3/ul (0.0-0.0); MYELOCYTES % (M) 1 % (0-0); PLATELET ESTIMATE INCREASED; PROMYELOCYTES #M 0.1 10^3/ul (0-0); PROMYELOCYTES % (M) 1 % (0-0); SEGMENTED NEUTROPHILS (M) % 55 % (39-77); SMUDGE%M 8 % (0-0)
[2017-07-22] MEDS: INSULIN GLARGINE [LANtus] 3 ML PEN SC (20:22)
[2017-07-23] MEDS: ALBUTEROL/IPRATROPIUM (NEB) 3 ML AMP HHN ×5 (01:37→18:05)
[2017-07-23] MEDS: ACCUCHECK AT 2AM (Patients on SS coverage) XX (02:00)
[2017-07-23] MEDS: HYDROCODONE/APAP (5/325) TAB PO ×3 (05:30→17:45)
[2017-07-23] MEDS: LEVOFLOXACIN 500 MG TAB PO (05:30)
[2017-07-23] MEDS: HEPARIN 5,000 UNIT/0.5 ML VIAL SC ×2 (05:35→13:47)
[2017-07-23 06:21] LABS: ADD MAN DIFF? NO
[2017-07-23 06:29] LABS: WHITE BLOOD COUNT 11.8 10^3/ul (4.8-10.8)
[2017-07-23 06:29] LABS: BASOPHIL # 0.1 10^3/ul (0.0-0.1); BASOPHILS % 0.5 % (0.0-2.0); EOSINOPHILS # 1.3 10^3/ul (0.0-0.5); EOSINOPHILS % 11.3 % (0.0-7.0); HEMATOCRIT 33.3 % (37.0-47.0); HEMOGLOBIN 10.9 g/dl (12.0-16.0); LYMPHOCYTES # 2.9 10^3/ul (0.8-2.9); LYMPHOCYTES % 24.6 % (15.0-51.0); MEAN CORPUSCULAR HEMOGLOBIN 30.4 pg (29.0-33.0); MEAN CORPUSCULAR HGB CONC 32.7 g/dl (32.0-37.0); MEAN PLATELET VOLUME 9.7 fl (7.4-10.4); MONOCYTE # 0.9 10^3/ul (0.3-0.9); MONOCYTES % 7.2 % (0.0-11.0); NEUTROPHIL # 6.3 10^3/ul (1.6-7.5); PLATELET COUNT 457 10^3/UL (140-415); RED BLOOD COUNT 3.58 10^6/ul (4.20-5.40); RED CELL DISTRIBUTION WIDTH 12.7 % (11.5-14.5)
[2017-07-23 06:54] LABS: MAGNESIUM 1.7 mg/dl (1.7-2.5)
[2017-07-23 06:54] LABS: PHOSPHORUS 5.6 mg/dl (2.5-4.9)
[2017-07-23 06:59] LABS: ANION GAP 12 (8-16); BLOOD UREA NITROGEN 45 mg/dl (7-20); CARBON DIOXIDE 28 mmol/L (21-31); CHLORIDE 107 mmol/L (97-110); CREATININE 1.43 mg/dl (0.44-1.00); GLUCOSE 185 mg/dl (70-220); POTASSIUM 3.9 mmol/L (3.5-5.1); SODIUM 143 mmol/L (135-144)
[2017-07-23] MEDS: Insulin NOVOLOG SS MILD Algorithm (SS with meals and bedtime) SC ×3 (08:16→17:34)
[2017-07-23] MEDS: INSULIN ASPART [NOVOLOG] 3 ML PEN SC ×3 (08:27→17:36)
[2017-07-23] MEDS: LOSARTAN 25 MG TAB PO (08:29)
[2017-07-23] MEDS: GABAPENTIN 300 MG CAP PO ×2 (08:29→12:31)
[2017-07-23] MEDS: NIFEdipine (XL) 60 MG TAB PO (08:29)
[2017-07-23] MEDS: FOLIC ACID 1 MG TAB PO (08:29)
[2017-07-23] MEDS: THIAMINE 100 MG TAB PO (08:29)
[2017-07-23] MEDS: ACETYLCYSTEINE 20% 4 ML VIAL NEB (08:48)
== END 2017-07-23 19:30 | disposition home health service (06) | DRG 871 ==
LOC: PP2 07-20 00:30 → MS4 07-16 15:45 → E/R 13:18 → MS2 17:24
PROVIDERS: Internal Medicine
PROC: 2W3QX1Z Immobilization of Right Lower Leg using Splint (ICD-10-PCS; principal; 2017-07-18)
DX: A41.9 Sepsis, unspecified organism (principal); J96.01 Acute respiratory failure with hypoxia; N17.0 Acute kidney failure with tubular necrosis; K31.84 Gastroparesis; E87.2 Acidosis; J18.9 Pneumonia, unspecified organism; E11.40 Type 2 diabetes mellitus with diabetic neuropathy, unspecified; E11.21 Type 2 diabetes mellitus with diabetic nephropathy; S82.145A Nondisplaced bicondylar fracture of left tibia, initial encounter for closed fracture; R65.20 Severe sepsis without septic shock; E11.319 Type 2 diabetes mellitus with unspecified diabetic retinopathy without macular edema; E11.43 Type 2 diabetes mellitus with diabetic autonomic (poly)neuropathy; R09.02 Hypoxemia; F10.10 Alcohol abuse, uncomplicated; I12.9 Hypertensive chronic kidney disease with stage 1 through stage 4 chronic kidney disease, or unspecified chronic kidney disease; N18.9 Chronic kidney disease, unspecified; W19.XXXA Unspecified fall, initial encounter; Y92.239 Unspecified place in hospital as the place of occurrence of the external cause; S83.242A Other tear of medial meniscus, current injury, left knee, initial encounter
CPT/HCPCS: 36415; 36600; 70450; 71045; 73030-RT; 73110-RT; 73562; 73721; 76775; 80048; 80053; 80061; 81001; 82043; 82803; 82962; 83036; 83605; 83735; 83880; 84100; 84300; 84439; 84443; 84484; 84560; 84703; 85025; 85610; 85730; 86704; 86709; 86803; 87040; 87086; 87340; 87400; 89190; 92526; 92610; 93005; 93306; 93970; 94640; 94644; 94664; 96365; 96366; 96372; 96375; 97116; 97161; 97530; 99291-25

== ENCOUNTER 2017-08-20 11:52 | Emergency (ER) | payer OTHER ==
[2017-08-20 21:06] LABS: ADD MAN DIFF? NO
[2017-08-20 21:07] LABS: BASOPHIL # 0.1 10^3/ul (0.0-0.1); BASOPHILS % 0.8 % (0.0-2.0); EOSINOPHILS # 0.7 10^3/ul (0.0-0.5); EOSINOPHILS % 7.5 % (0.0-7.0); HEMOGLOBIN 10.8 g/dl (12.0-16.0); LYMPHOCYTES # 2.1 10^3/ul (0.8-2.9); LYMPHOCYTES % 22.8 % (15.0-51.0); MEAN CORPUSCULAR HEMOGLOBIN 30.6 pg (29.0-33.0); MEAN CORPUSCULAR HGB CONC 33.8 g/dl (32.0-37.0); MEAN CORPUSCULAR VOLUME 90.7 fl (82.0-101.0); MEAN PLATELET VOLUME 9.7 fl (7.4-10.4); MONOCYTE # 0.8 10^3/ul (0.3-0.9); MONOCYTES % 8.7 % (0.0-11.0); NEUTROPHIL # 5.5 10^3/ul (1.6-7.5); NEUTROPHILS % 59.9 % (39.0-77.0); PLATELET COUNT 377 10^3/UL (140-415); RED BLOOD COUNT 3.53 10^6/ul (4.20-5.40); RED CELL DISTRIBUTION WIDTH 12.6 % (11.5-14.5)
[2017-08-20 21:07] LABS: WHITE BLOOD COUNT 9.2 10^3/ul (4.8-10.8)
[2017-08-20 21:31] LABS: ANION GAP 16 (8-16); BLOOD UREA NITROGEN 56 mg/dl (7-20); CALCIUM 9.5 mg/dl (8.4-10.2); CARBON DIOXIDE 23 mmol/L (21-31); CHLORIDE 111 mmol/L (97-110); CREATININE 1.76 mg/dl (0.44-1.00); GLUCOSE 161 mg/dl (70-220); POTASSIUM 4.4 mmol/L (3.5-5.1); SODIUM 146 mmol/L (135-144)
[2017-08-20 21:43] LABS: B-TYPE NATRIURETIC PEPTIDE 997 PG/ML (0-125)
[2017-08-20 21:44] LABS: TROPONIN-I < 0.012 ng/ml (0.00-0.12)
[2017-08-20] MEDS: DIPHENHYDRAMINE 50 MG INJ IV (23:14)
[2017-08-20] MEDS: METOCLOPRAMIDE 10 MG INJ IV (23:15)
[2017-08-20 23:25] LABS: URINE BLOOD (Dip) POC Trace-lysed (NEGATIVE); URINE GLUCOSE (Dip) POC Negative (NEGATIVE); URINE KETONES (Dip) POC Negative (NEGATIVE); URINE LEUKOCYTE EST (Dip) POC Negative (NEGATIVE); URINE NITRITE (Dip) POC Negative (NEGATIVE); URINE TOTAL PROTEIN POC 3+ (NEGATIVE)
[2017-08-20 23:57] LABS: ADD UMIC YES; UR ASCORBIC ACID NEGATIVE (NEGATIVE); UR BILIRUBIN (Dip) NEGATIVE (NEGATIVE); UR BLOOD (Dip) NEGATIVE (NEGATIVE); UR CLARITY CLEAR (CLEAR); UR COLOR STRAW (YELLOW); UR GLUCOSE (Dip) 1+ mg/dL (NEGATIVE); UR KETONES (Dip) NEGATIVE (NEGATIVE); UR LEUKOCYTE ESTERASE (Dip) NEGATIVE Leu/ul (NEGATIVE); UR NITRITE (Dip) NEGATIVE (NEGATIVE); UR RBC 1 /HPF (0-5); UR SPECIFIC GRAVITY (Dip) 1.012 (1.003-1.030); UR TOTAL PROTEIN (Dip) 3+ mg/dl (NEGATIVE); UR UROBILINOGEN (Dip) NEGATIVE (NEGATIVE); UR WBC 1 /HPF (0-5)
[2017-08-21] MEDS: ALBUTEROL 0.083% (NEB) 2.5 MG/3 ML AMP HHN (03:01)
== END 2017-08-21 04:20 | disposition home or self-care (01) ==
LOC: E/R 08-21 04:20
DX: R79.89 Other specified abnormal findings of blood chemistry (principal); N28.9 Disorder of kidney and ureter, unspecified; I10 Essential (primary) hypertension; E11.9 Type 2 diabetes mellitus without complications; Z79.4 Long term (current) use of insulin
CPT/HCPCS: 36415; 71045; 80048; 81001; 81003; 83880; 84484; 85025; 93005; 94664; 96374; 96375; 99285-25

== ENCOUNTER 2017-09-12 22:04 | Inpatient (IN) | payer OTHER ==
[2017-09-13] MEDS: hydrALAzine 20 MG INJ IV (01:01)
[2017-09-13] MEDS: NIFEdipine (XL) 60 MG TAB PO ×2 (05:27→09:01)
[2017-09-13] MEDS ORDERED: ZOLPIDEM 5 MG TAB PO (08:00)
[2017-09-13] MEDS ORDERED: HYDROCODONE/APAP (5/325) TAB PO (08:00)
[2017-09-13] MEDS ORDERED: NACL 0.9% 3 ML SYG IV (08:00)
[2017-09-13] MEDS ORDERED: DOCUSATE SODIUM 100 MG CAP PO (08:00)
[2017-09-13] MEDS ORDERED: ONDANSETRON 4 MG INJ IV (08:00)
[2017-09-13] MEDS ORDERED: ACETAMINOPHEN 325 MG TAB PO (08:00)
[2017-09-13] MEDS: INSULIN ASPART [NOVOLOG] 3 ML PEN SC ×4 (08:00→20:45)
[2017-09-13] MEDS ORDERED: DEXTROSE 50% 50 ML SYRINGE IV ×2 (08:30)
[2017-09-13] MEDS ORDERED: GLUCAGON 1 MG INJ IM (08:30)
[2017-09-13] MEDS ORDERED: GLUCOSE GEL 15 GRAM TUBE BUCCAL (08:30)
[2017-09-13] MEDS ORDERED: GLUCOSE GEL 15 GRAM TUBE PO ×2 (08:30)
[2017-09-13] MEDS: SOD CHLORIDE 0.45% 1,000 ML IV ×2 (08:59→17:34)
[2017-09-13] MEDS: FUROSEMIDE 40 MG TAB PO (09:01)
[2017-09-13] MEDS: ACETAMINOPHEN 325 MG TAB PO ×2 (09:11→18:52)
[2017-09-13] MEDS: LOSARTAN 25 MG TAB PO (10:23)
[2017-09-13] MEDS: LACTOBACILLUS RHAMNOSUS CAP PO ×2 (14:48→22:53)
[2017-09-13 14:51] LABS: LIPASE 161 U/L (23-300)
[2017-09-13] MEDS: INSULIN GLARGINE [LANtus] 3 ML PEN SC (20:44)
[2017-09-14] MEDS: ACCU-CHEK XX (02:00)
[2017-09-14] MEDS: SOD CHLORIDE 0.45% 1,000 ML IV (05:02)
[2017-09-14] MEDS ORDERED: PANTOPRAZOLE (EC) 40 MG TAB PO (06:00)
[2017-09-14 07:48] LABS: ADD MAN DIFF? NO
[2017-09-14] MEDS: INSULIN ASPART [NOVOLOG] 3 ML PEN SC ×4 (07:49→21:00)
[2017-09-14 07:56] LABS: BASOPHILS % 0.6 % (0.0-2.0); EOSINOPHILS # 0.2 10^3/ul (0.0-0.5); EOSINOPHILS % 3.8 % (0.0-7.0); HEMATOCRIT 34.5 % (37.0-47.0); HEMOGLOBIN 11.4 g/dl (12.0-16.0); LYMPHOCYTES # 2.3 10^3/ul (0.8-2.9); LYMPHOCYTES % 36.3 % (15.0-51.0); MEAN CORPUSCULAR HEMOGLOBIN 29.7 pg (29.0-33.0); MEAN CORPUSCULAR VOLUME 89.8 fl (82.0-101.0); MEAN PLATELET VOLUME 10.3 fl (7.4-10.4); MONOCYTE # 0.6 10^3/ul (0.3-0.9); MONOCYTES % 9.3 % (0.0-11.0); NEUTROPHIL # 3.2 10^3/ul (1.6-7.5); NEUTROPHILS % 49.7 % (39.0-77.0); PLATELET COUNT 327 10^3/UL (140-415); RED BLOOD COUNT 3.84 10^6/ul (4.20-5.40); RED CELL DISTRIBUTION WIDTH 12.4 % (11.5-14.5)
[2017-09-14 07:56] LABS: WHITE BLOOD COUNT 6.3 10^3/ul (4.8-10.8)
[2017-09-14 08:09] LABS: IRON 79 ug/dl (35-150)
[2017-09-14 08:15] LABS: ALANINE AMINOTRANSFERASE 59 IU/L (13-69); ALBUMIN 3.5 g/dl (3.3-4.9); ALBUMIN/GLOBULIN RATIO 1.06; ALKALINE PHOSPHATASE 123 IU/L (42-121); ANION GAP 15 (8-16); ASPARTATE AMINO TRANSFERASE 41 IU/L (15-46); BILIRUBIN,INDIRECT 0.2 mg/dl (0-1.1); BILIRUBIN,TOTAL 0.2 mg/dl (0.2-1.3); BLOOD UREA NITROGEN 37 mg/dl (7-20); CALCIUM 8.9 mg/dl (8.4-10.2); CARBON DIOXIDE 19 mmol/L (21-31); CHLORIDE 115 mmol/L (97-110); CREATININE 1.44 mg/dl (0.44-1.00); GLUCOSE 124 mg/dl (70-220); SODIUM 145 mmol/L (135-144); TOTAL PROTEIN 6.8 g/dl (6.1-8.1)
[2017-09-14 08:15] LABS: HEMOGLOBIN A1C 6.2 % (0-5.9)
[2017-09-14 08:38] LABS: MAGNESIUM 1.8 mg/dl (1.7-2.5)
[2017-09-14 08:48] LABS: % IRON SATURATION 22 % SAT (22-52); TOTAL IRON BINDING CAPACITY 357 ug/dl (241-421)
[2017-09-14] MEDS: FAMOTIDINE 20 MG TAB PO (08:52)
[2017-09-14] MEDS: NIFEdipine (XL) 60 MG TAB PO (08:52)
[2017-09-14] MEDS: LACTOBACILLUS RHAMNOSUS CAP PO ×2 (08:52→21:35)
[2017-09-14] MEDS: LOSARTAN 25 MG TAB PO (08:52)
[2017-09-14] MEDS ORDERED: ACETAMINOPHEN 325 MG TAB PO (11:00)
[2017-09-14] MEDS: IOHEXOL 14.3 MG(I)/ML (ADULT) BTL PO (11:00)
[2017-09-14] MEDS: DEXTROSE 5%-0.45% NACL 1,000 ML IV (12:14)
[2017-09-14 14:51] LABS: LIPASE 127 U/L (23-300)
[2017-09-14 14:51] LABS: AMYLASE 50 U/L (11-123)
[2017-09-14] MEDS: AMLODIPINE 5 MG TAB PO (16:16)
[2017-09-14] MEDS: INSULIN GLARGINE [LANtus] 3 ML PEN SC (21:47)
[2017-09-15] MEDS: DEXTROSE 5%-0.45% NACL 1,000 ML IV ×2 (02:29→14:53)
[2017-09-15] MEDS: ACCU-CHEK XX (02:33)
[2017-09-15 06:11] LABS: HEMATOCRIT 35.6 % (37.0-47.0); MEAN CORPUSCULAR HEMOGLOBIN 30.2 pg (29.0-33.0); MEAN CORPUSCULAR HGB CONC 33.7 g/dl (32.0-37.0); MEAN CORPUSCULAR VOLUME 89.7 fl (82.0-101.0); MEAN PLATELET VOLUME 9.7 fl (7.4-10.4); PLATELET COUNT 332 10^3/UL (140-415); RED BLOOD COUNT 3.97 10^6/ul (4.20-5.40); RED CELL DISTRIBUTION WIDTH 11.9 % (11.5-14.5)
[2017-09-15 06:11] LABS: WHITE BLOOD COUNT 7.1 10^3/ul (4.8-10.8)
[2017-09-15 06:25] LABS: ADD MAN DIFF? YES; POSITIVE DIFF @See below
[2017-09-15 06:43] LABS: ALANINE AMINOTRANSFERASE 50 IU/L (13-69); ALBUMIN 3.5 g/dl (3.3-4.9); ALBUMIN/GLOBULIN RATIO 1.06; ALKALINE PHOSPHATASE 114 IU/L (42-121); ANION GAP 16 (8-16); ASPARTATE AMINO TRANSFERASE 29 IU/L (15-46); BILIRUBIN,INDIRECT 0.2 mg/dl (0-1.1); BILIRUBIN,TOTAL 0.2 mg/dl (0.2-1.3); BLOOD UREA NITROGEN 33 mg/dl (7-20); CALCIUM 9.1 mg/dl (8.4-10.2); CARBON DIOXIDE 19 mmol/L (21-31); CHLORIDE 115 mmol/L (97-110); CREATININE 1.27 mg/dl (0.44-1.00); GLUCOSE 165 mg/dl (70-220); POTASSIUM 4.2 mmol/L (3.5-5.1); SODIUM 146 mmol/L (135-144); TOTAL PROTEIN 6.8 g/dl (6.1-8.1)
[2017-09-15] MEDS ORDERED: PROPOFOL 200 MG INJ (07:00)
[2017-09-15] MEDS ORDERED: ROCURONIUM 50 MG INJ (07:00)
[2017-09-15] MEDS ORDERED: LIDOCAINE 2% (SDV) 5 ML INJ (07:00)
[2017-09-15] MEDS ORDERED: GLUCAGON 1 MG INJ (07:00)
[2017-09-15] MEDS: INSULIN ASPART [NOVOLOG] 3 ML PEN SC ×5 (07:53→21:12)
[2017-09-15 08:04] LABS: BAND NEUTROPHILS #M 0.2 10^3/ul (0.0-0.6); BAND NEUTROPHILS % (M) 4 % (0-4); BASOPHILS % (M) 1 % (0-2); EOSINOPHILS % (M) 6 % (0-7); LYMPHOCYTES #M 2.9 10^3/ul (0.8-2.9); LYMPHOCYTES % (M) 41 % (15-51); MONOCYTE #M 0.4 10^3/ul (0.3-0.9); MONOCYTES % (M) 6 % (0-11); PLATELET ESTIMATE NORMAL; REACTIVE LYMPHOCYTES% (M) 1 % (0-0); SEG NEUT #M 2.9 10^3/ul (1.6-7.5); SEGMENTED NEUTROPHILS (M) % 40 % (39-77); SMUDGE%M 5 % (0-0)
[2017-09-15] MEDS: LACTOBACILLUS RHAMNOSUS CAP PO ×2 (08:53→21:06)
[2017-09-15] MEDS: AMLODIPINE 5 MG TAB PO (08:53)
[2017-09-15] MEDS: LOSARTAN 25 MG TAB PO (08:53)
[2017-09-15] MEDS: FAMOTIDINE 20 MG TAB PO (08:53)
[2017-09-15] MEDS: NIFEdipine (XL) 60 MG TAB PO (08:53)
[2017-09-15 10:48] LABS: INR 0.89; PROTIME 12.1 Sec (11.9-14.9); PT RATIO 0.9
[2017-09-15] MEDS ORDERED: hydrALAzine 20 MG INJ IV (11:00)
[2017-09-15] MEDS ORDERED: KETOROLAC 30 MG INJ IV (11:00)
[2017-09-15] MEDS ORDERED: METOCLOPRAMIDE 10 MG INJ IV (11:00)
[2017-09-15] MEDS ORDERED: OXYCODONE/ACETAMINOPHEN (5/325) TAB PO ×2 (11:00)
[2017-09-15] MEDS ORDERED: ALBUTEROL 0.083% (NEB) 2.5 MG/3 ML AMP HHN (11:00)
[2017-09-15] MEDS ORDERED: HYDROmorphONE (0.2 MG/ML) 10ML SYG IV ×3 (11:00)
[2017-09-15] MEDS ORDERED: FENTAnyl 50 MCG/ML VIAL IV ×3 (11:00)
[2017-09-15] MEDS ORDERED: MEPERIDINE 25 MG INJ IV (11:00)
[2017-09-15] MEDS ORDERED: EPHEDrine SULFATE 50 MG/5 ML SYG IV (11:00)
[2017-09-15] MEDS ORDERED: ONDANSETRON 4 MG INJ IV (11:00)
[2017-09-15] MEDS ORDERED: IOHEXOL 300MG/ML 30 ML BTL (11:29)
[2017-09-15] MEDS ORDERED: DEXAMETHASONE 4 MG/ML 1 ML INJ (11:55)
[2017-09-15] MEDS ORDERED: ONDANSETRON 4 MG INJ (11:56)
[2017-09-15] MEDS ORDERED: SUGAMMADEX SODIUM 200 MG/2 ML VIAL IV (12:32)
[2017-09-15] MEDS: LABETALOL HCL 20MG INJ IV (13:02)
[2017-09-15] MEDS: INSULIN GLARGINE [LANtus] 3 ML PEN SC ×2 (20:00→21:10)
[2017-09-15] MEDS ORDERED: INSULIN GLARGINE [LANtus] 3 ML PEN SC (21:00)
[2017-09-15 21:18] LABS: ADD UMIC YES; UR ASCORBIC ACID NEGATIVE (NEGATIVE); UR BACTERIA FEW /HPF (NONE SEEN); UR BILIRUBIN (Dip) NEGATIVE (NEGATIVE); UR BLOOD (Dip) 1+ mg/dL (NEGATIVE); UR CLARITY SLIGHTLY CLOUDY (CLEAR); UR COLOR YELLOW (YELLOW); UR GLUCOSE (Dip) 2+ mg/dL (NEGATIVE); UR KETONES (Dip) NEGATIVE (NEGATIVE); UR LEUKOCYTE ESTERASE (Dip) NEGATIVE Leu/ul (NEGATIVE); UR NITRITE (Dip) NEGATIVE (NEGATIVE); UR RBC 2 /HPF (0-5); UR SPECIFIC GRAVITY (Dip) 1.016 (1.003-1.030); UR TOTAL PROTEIN (Dip) 3+ mg/dl (NEGATIVE); UR UROBILINOGEN (Dip) NEGATIVE (NEGATIVE); UR WBC 3 /HPF (0-5)
[2017-09-16] MEDS: ACCU-CHEK XX (02:00)
[2017-09-16] MEDS: morphine 2 MG INJ IV ×2 (03:58→08:14)
[2017-09-16 07:51] LABS: ADD MAN DIFF? NO
[2017-09-16 07:55] LABS: WHITE BLOOD COUNT 8.3 10^3/ul (4.8-10.8)
[2017-09-16 07:55] LABS: BASOPHILS % 0.5 % (0.0-2.0); EOSINOPHILS # 0.1 10^3/ul (0.0-0.5); EOSINOPHILS % 0.6 % (0.0-7.0); HEMATOCRIT 34.8 % (37.0-47.0); HEMOGLOBIN 11.7 g/dl (12.0-16.0); LYMPHOCYTES # 2.8 10^3/ul (0.8-2.9); LYMPHOCYTES % 33.2 % (15.0-51.0); MEAN CORPUSCULAR HEMOGLOBIN 29.8 pg (29.0-33.0); MEAN CORPUSCULAR HGB CONC 33.6 g/dl (32.0-37.0); MEAN CORPUSCULAR VOLUME 88.5 fl (82.0-101.0); MEAN PLATELET VOLUME 9.9 fl (7.4-10.4); MONOCYTE # 0.9 10^3/ul (0.3-0.9); NEUTROPHIL # 4.5 10^3/ul (1.6-7.5); NEUTROPHILS % 54.5 % (39.0-77.0); PLATELET COUNT 341 10^3/UL (140-415); RED BLOOD COUNT 3.93 10^6/ul (4.20-5.40); RED CELL DISTRIBUTION WIDTH 12.1 % (11.5-14.5)
[2017-09-16] MEDS: INSULIN ASPART [NOVOLOG] 3 ML PEN SC ×2 (08:00→12:10)
[2017-09-16] MEDS: LACTOBACILLUS RHAMNOSUS CAP PO (08:13)
[2017-09-16] MEDS: FAMOTIDINE 20 MG TAB PO (08:13)
[2017-09-16] MEDS: AMLODIPINE 5 MG TAB PO (08:13)
[2017-09-16] MEDS: LOSARTAN 25 MG TAB PO (08:13)
[2017-09-16] MEDS: NIFEdipine (XL) 60 MG TAB PO (08:13)
[2017-09-16 08:29] LABS: ALANINE AMINOTRANSFERASE 43 IU/L (13-69); ALBUMIN 3.7 g/dl (3.3-4.9); ALBUMIN/GLOBULIN RATIO 1.12; ALKALINE PHOSPHATASE 115 IU/L (42-121); ANION GAP 16 (8-16); ASPARTATE AMINO TRANSFERASE 23 IU/L (15-46); BILIRUBIN,INDIRECT 0.1 mg/dl (0-1.1); BILIRUBIN,TOTAL 0.1 mg/dl (0.2-1.3); BLOOD UREA NITROGEN 32 mg/dl (7-20); CALCIUM 9.3 mg/dl (8.4-10.2); CARBON DIOXIDE 20 mmol/L (21-31); CHLORIDE 113 mmol/L (97-110); CREATININE 1.39 mg/dl (0.44-1.00); GLUCOSE 164 mg/dl (70-220); POTASSIUM 4.1 mmol/L (3.5-5.1); SODIUM 145 mmol/L (135-144)
[2017-09-16] MEDS: hydrALAzine 20 MG INJ IV (09:22)
== END 2017-09-16 16:27 | disposition home or self-care (01) | DRG 304 ==
LOC: E/R 22:04 → MS4 09-13 01:18
PROVIDERS: Internal Medicine
PROC: 0FC98ZZ Extirpation of Matter from Common Bile Duct, Via Natural or Artificial Opening Endoscopic (ICD-10-PCS; principal; 2017-09-15 10:30)
DX: I16.0 Hypertensive urgency (principal); G93.40 Encephalopathy, unspecified; K83.1 Obstruction of bile duct; E87.0 Hyperosmolality and hypernatremia; N17.9 Acute kidney failure, unspecified; E87.2 Acidosis; E11.649 Type 2 diabetes mellitus with hypoglycemia without coma; A08.4 Viral intestinal infection, unspecified; I12.9 Hypertensive chronic kidney disease with stage 1 through stage 4 chronic kidney disease, or unspecified chronic kidney disease; E11.22 Type 2 diabetes mellitus with diabetic chronic kidney disease; N18.9 Chronic kidney disease, unspecified; D63.1 Anemia in chronic kidney disease; I27.20 Pulmonary hypertension, unspecified; F10.21 Alcohol dependence, in remission; Z91.14 Patient's other noncompliance with medication regimen; E66.3 Overweight; Z68.29 Body mass index [BMI] 29.0-29.9, adult; Z98.51 Tubal ligation status; K80.20 Calculus of gallbladder without cholecystitis without obstruction; H40.9 Unspecified glaucoma; E78.5 Hyperlipidemia, unspecified; R51 Headache; G89.29 Other chronic pain; E88.81 Metabolic syndrome and other insulin resistance; E86.0 Dehydration; E87.8 Other disorders of electrolyte and fluid balance, not elsewhere classified
CPT/HCPCS: 70551; 74018; 74176; 74181; 74330; 80053; 81001; 82150; 82962; 83036; 83540; 83690; 83735; 84100; 85025; 85610; 87045; 87075; 96374; 99285-25; G0378

== ENCOUNTER 2017-11-14 15:11 | Inpatient (IN) | payer OTHER ==
[2017-11-14 18:24] LABS: ADD MAN DIFF? NO
[2017-11-14 18:27] LABS: BASOPHIL # 0.1 10^3/ul (0.0-0.1); BASOPHILS % 0.5 % (0.0-2.0); EOSINOPHILS # 0.1 10^3/ul (0.0-0.5); EOSINOPHILS % 0.6 % (0.0-7.0); HEMATOCRIT 34.3 % (37.0-47.0); HEMOGLOBIN 11.5 g/dl (12.0-16.0); LYMPHOCYTES # 1.7 10^3/ul (0.8-2.9); LYMPHOCYTES % 13.9 % (15.0-51.0); MEAN CORPUSCULAR HEMOGLOBIN 29.7 pg (29.0-33.0); MEAN CORPUSCULAR HGB CONC 33.5 g/dl (32.0-37.0); MEAN CORPUSCULAR VOLUME 88.6 fl (82.0-101.0); MEAN PLATELET VOLUME 9.9 fl (7.4-10.4); MONOCYTE # 0.5 10^3/ul (0.3-0.9); MONOCYTES % 4.1 % (0.0-11.0); NEUTROPHILS % 80.5 % (39.0-77.0); PLATELET COUNT 366 10^3/UL (140-415); RED BLOOD COUNT 3.87 10^6/ul (4.20-5.40); RED CELL DISTRIBUTION WIDTH 12.4 % (11.5-14.5)
[2017-11-14 18:27] LABS: WHITE BLOOD COUNT 12.5 10^3/ul (4.8-10.8)
[2017-11-14 18:37] LABS: ADD UMIC YES; UR ASCORBIC ACID 20 mg/dL (NEGATIVE); UR BILIRUBIN (Dip) NEGATIVE (NEGATIVE); UR BLOOD (Dip) NEGATIVE (NEGATIVE); UR CLARITY CLEAR (CLEAR); UR COLOR STRAW (YELLOW); UR GLUCOSE (Dip) 1+ mg/dL (NEGATIVE); UR KETONES (Dip) NEGATIVE (NEGATIVE); UR LEUKOCYTE ESTERASE (Dip) NEGATIVE Leu/ul (NEGATIVE); UR NITRITE (Dip) NEGATIVE (NEGATIVE); UR RBC 1 /HPF (0-5); UR SPECIFIC GRAVITY (Dip) 1.011 (1.003-1.030); UR TOTAL PROTEIN (Dip) 3+ mg/dl (NEGATIVE); UR UROBILINOGEN (Dip) NEGATIVE (NEGATIVE); UR WBC 0 /HPF (0-5)
[2017-11-14 18:47] LABS: ALANINE AMINOTRANSFERASE 37 IU/L (13-69); ALBUMIN 4.1 g/dl (3.3-4.9); ALBUMIN/GLOBULIN RATIO 1.13; ALKALINE PHOSPHATASE 145 IU/L (42-121); ANION GAP 16 (8-16); ASPARTATE AMINO TRANSFERASE 28 IU/L (15-46); BILIRUBIN,INDIRECT 0.3 mg/dl (0-1.1); BILIRUBIN,TOTAL 0.3 mg/dl (0.2-1.3); BLOOD UREA NITROGEN 64 mg/dl (7-20); CALCIUM 9.3 mg/dl (8.4-10.2); CARBON DIOXIDE 23 mmol/L (21-31); CHLORIDE 107 mmol/L (97-110); CREATININE 2.03 mg/dl (0.44-1.00); GLUCOSE 167 mg/dl (70-220); LIPASE 99 U/L (23-300); POTASSIUM 4.1 mmol/L (3.5-5.1); SODIUM 142 mmol/L (135-144); TOTAL PROTEIN 7.7 g/dl (6.1-8.1)
[2017-11-14 18:49] LABS: ETHANOL < 10.0 mg/dl
[2017-11-14] MEDS: ASPIRIN 81 MG TAB PO (18:52)
[2017-11-14] MEDS: FUROSEMIDE 40 MG INJ IV (18:54)
[2017-11-14 18:57] LABS: B-TYPE NATRIURETIC PEPTIDE 606 PG/ML (0-125)
[2017-11-14 19:00] LABS: TROPONIN-I < 0.012 ng/ml (0.000-0.120)
[2017-11-14] MEDS: KETOROLAC 15 MG INJ IV (19:10)
[2017-11-14] MEDS ORDERED: BISACODYL (EC) 5 MG TAB PO (20:30)
[2017-11-14] MEDS ORDERED: ONDANSETRON 4 MG INJ IV (20:30)
[2017-11-14] MEDS ORDERED: DOCUSATE SODIUM 100 MG CAP PO (20:30)
[2017-11-14] MEDS ORDERED: NITROGLYCERIN (SL) 0.4 MG TAB SL (20:30)
[2017-11-14] MEDS ORDERED: NACL 0.9% 3 ML SYG IV (20:30)
[2017-11-15] MEDS: ACETAMINOPHEN 325 MG TAB PO (00:09)
[2017-11-15] MEDS ORDERED: GLUCAGON 1 MG INJ IM (00:30)
[2017-11-15] MEDS ORDERED: GLUCOSE GEL 15 GRAM TUBE BUCCAL (00:30)
[2017-11-15] MEDS ORDERED: DEXTROSE 50% 50 ML SYRINGE IV ×2 (00:30)
[2017-11-15] MEDS ORDERED: GLUCOSE GEL 15 GRAM TUBE PO ×2 (00:30)
[2017-11-15] MEDS: GABAPENTIN 300 MG CAP PO ×4 (00:37→21:38)
[2017-11-15] MEDS: ALLOPURINOL 100 MG TAB PO ×2 (00:37→21:37)
[2017-11-15] MEDS: LOSARTAN 25 MG TAB PO (00:38)
[2017-11-15] MEDS: NIFEdipine (XL) 60 MG TAB PO ×2 (00:38→09:51)
[2017-11-15] MEDS: INSULIN ASPART [NOVOLOG] 3 ML PEN SC ×6 (00:41→21:00)
[2017-11-15] MEDS: ACCU-CHEK XX (02:00)
[2017-11-15 08:37] LABS: ADD MAN DIFF? NO
[2017-11-15 08:41] LABS: WHITE BLOOD COUNT 9.3 10^3/ul (4.8-10.8)
[2017-11-15 08:41] LABS: BASOPHIL # 0.1 10^3/ul (0.0-0.1); BASOPHILS % 0.8 % (0.0-2.0); EOSINOPHILS # 0.4 10^3/ul (0.0-0.5); EOSINOPHILS % 3.8 % (0.0-7.0); HEMATOCRIT 34.8 % (37.0-47.0); HEMOGLOBIN 11.3 g/dl (12.0-16.0); LYMPHOCYTES # 2.2 10^3/ul (0.8-2.9); LYMPHOCYTES % 23.2 % (15.0-51.0); MEAN CORPUSCULAR HEMOGLOBIN 29.2 pg (29.0-33.0); MEAN CORPUSCULAR HGB CONC 32.5 g/dl (32.0-37.0); MEAN CORPUSCULAR VOLUME 89.9 fl (82.0-101.0); MEAN PLATELET VOLUME 10.1 fl (7.4-10.4); MONOCYTE # 0.7 10^3/ul (0.3-0.9); MONOCYTES % 7.1 % (0.0-11.0); NEUTROPHIL # 6.1 10^3/ul (1.6-7.5); NEUTROPHILS % 64.7 % (39.0-77.0); PLATELET COUNT 351 10^3/UL (140-415); RED BLOOD COUNT 3.87 10^6/ul (4.20-5.40); RED CELL DISTRIBUTION WIDTH 12.6 % (11.5-14.5)
[2017-11-15 08:59] LABS: ALANINE AMINOTRANSFERASE 32 IU/L (13-69); ALBUMIN 3.9 g/dl (3.3-4.9); ALBUMIN/GLOBULIN RATIO 1.34; ALKALINE PHOSPHATASE 117 IU/L (42-121); ANION GAP 14 (8-16); ASPARTATE AMINO TRANSFERASE 23 IU/L (15-46); BILIRUBIN,INDIRECT 0.3 mg/dl (0-1.1); BILIRUBIN,TOTAL 0.3 mg/dl (0.2-1.3); BLOOD UREA NITROGEN 61 mg/dl (7-20); CALCIUM 9.2 mg/dl (8.4-10.2); CARBON DIOXIDE 26 mmol/L (21-31); CHLORIDE 108 mmol/L (97-110); CHOLESTEROL 138 mg/dl (100-200); CREATININE 1.87 mg/dl (0.44-1.00); GLUCOSE 157 mg/dl (70-220); HDL CHOLESTEROL 67 mg/dl (37-92); LDL CHOLESTEROL,CALCULATED 46 mg/dl; MAGNESIUM 2.6 mg/dl (1.7-2.5); POTASSIUM 4.3 mmol/L (3.5-5.1); SODIUM 144 mmol/L (135-144); TOTAL PROTEIN 6.8 g/dl (6.1-8.1); TRIGLYCERIDES 127 mg/dl (0-149)
[2017-11-15 09:20] LABS: HEMOGLOBIN A1C 6.7 % (0-5.9)
[2017-11-15] MEDS: FUROSEMIDE 40 MG INJ IV (09:49)
[2017-11-15] MEDS: CALCIUM/VITAMIN D (500/200) TAB PO ×2 (09:51→21:37)
[2017-11-15 10:39] LABS: OSMOLALITY 317 mOsm/kg (280-295)
[2017-11-15] MEDS: FUROSEMIDE 20 MG INJ IV (18:30)
[2017-11-15 20:09] LABS: SODIUM,URINE RANDOM 121 mmol/L (30-90)
[2017-11-15 20:20] LABS: OSMOLALITY,URINE 341 mOsm/kg (250-1200)
[2017-11-16] MEDS: ACCU-CHEK XX (02:00)
[2017-11-16] MEDS: FUROSEMIDE 40 MG TAB PO (05:16)
[2017-11-16 06:08] LABS: ADD MAN DIFF? NO
[2017-11-16 06:23] LABS: BASOPHIL # 0.1 10^3/ul (0.0-0.1); BASOPHILS % 0.7 % (0.0-2.0); EOSINOPHILS # 0.5 10^3/ul (0.0-0.5); EOSINOPHILS % 5.5 % (0.0-7.0); HEMATOCRIT 34.5 % (37.0-47.0); HEMOGLOBIN 11.1 g/dl (12.0-16.0); LYMPHOCYTES # 2.3 10^3/ul (0.8-2.9); MEAN CORPUSCULAR HEMOGLOBIN 29.4 pg (29.0-33.0); MEAN CORPUSCULAR HGB CONC 32.2 g/dl (32.0-37.0); MEAN CORPUSCULAR VOLUME 91.5 fl (82.0-101.0); MEAN PLATELET VOLUME 10.1 fl (7.4-10.4); MONOCYTE # 0.6 10^3/ul (0.3-0.9); MONOCYTES % 7.3 % (0.0-11.0); NEUTROPHIL # 4.8 10^3/ul (1.6-7.5); NEUTROPHILS % 58.1 % (39.0-77.0); PLATELET COUNT 322 10^3/UL (140-415); RED BLOOD COUNT 3.77 10^6/ul (4.20-5.40); RED CELL DISTRIBUTION WIDTH 12.3 % (11.5-14.5)
[2017-11-16 06:23] LABS: WHITE BLOOD COUNT 8.2 10^3/ul (4.8-10.8)
[2017-11-16 06:53] LABS: ANION GAP 15 (8-16); BLOOD UREA NITROGEN 66 mg/dl (7-20); CALCIUM 9.6 mg/dl (8.4-10.2); CARBON DIOXIDE 24 mmol/L (21-31); CHLORIDE 108 mmol/L (97-110); CREATININE 1.87 mg/dl (0.44-1.00); GLUCOSE 239 mg/dl (70-220); POTASSIUM 4.6 mmol/L (3.5-5.1); SODIUM 142 mmol/L (135-144)
[2017-11-16 06:54] LABS: PHOSPHORUS 5.3 mg/dl (2.5-4.9)
[2017-11-16] MEDS: CALCIUM/VITAMIN D (500/200) TAB PO ×2 (08:32→21:25)
[2017-11-16] MEDS: GABAPENTIN 300 MG CAP PO ×3 (08:32→21:25)
[2017-11-16] MEDS: METOPROLOL (XL) 25 MG TAB PO (08:33)
[2017-11-16] MEDS: morphine 2 MG INJ IV ×2 (08:34→21:24)
[2017-11-16] MEDS: INSULIN ASPART [NOVOLOG] 3 ML PEN SC ×5 (08:43→21:50)
[2017-11-16] MEDS: LINAGLIPTIN 5 MG TABLET PO (12:09)
[2017-11-16] MEDS: LACTATED RINGER'S 500 ML IV (13:08)
[2017-11-16] MEDS: hydrALAzine 20 MG INJ IV (15:28)
[2017-11-16] MEDS: ACETAMINOPHEN 325 MG TAB PO (21:24)
[2017-11-16] MEDS: ALLOPURINOL 100 MG TAB PO (21:25)
[2017-11-17] MEDS: ACCU-CHEK XX (02:33)
[2017-11-17] MEDS: ACETAMINOPHEN 325 MG TAB PO ×2 (02:48→08:12)
[2017-11-17] MEDS: INSULIN ASPART [NOVOLOG] 3 ML PEN SC ×5 (02:57→20:58)
[2017-11-17] MEDS: hydrALAzine 20 MG INJ IV ×2 (05:35→10:50)
[2017-11-17] MEDS: FUROSEMIDE 40 MG TAB PO (05:36)
[2017-11-17 07:49] LABS: ADD MAN DIFF? NO
[2017-11-17 07:52] LABS: BASOPHIL # 0.1 10^3/ul (0.0-0.1); BASOPHILS % 0.8 % (0.0-2.0); EOSINOPHILS # 0.7 10^3/ul (0.0-0.5); EOSINOPHILS % 7.8 % (0.0-7.0); HEMATOCRIT 35.9 % (37.0-47.0); HEMOGLOBIN 11.6 g/dl (12.0-16.0); LYMPHOCYTES # 2.8 10^3/ul (0.8-2.9); LYMPHOCYTES % 30.6 % (15.0-51.0); MEAN CORPUSCULAR HEMOGLOBIN 29.7 pg (29.0-33.0); MEAN CORPUSCULAR HGB CONC 32.3 g/dl (32.0-37.0); MEAN CORPUSCULAR VOLUME 92.1 fl (82.0-101.0); MEAN PLATELET VOLUME 10.2 fl (7.4-10.4); MONOCYTE # 0.7 10^3/ul (0.3-0.9); MONOCYTES % 7.7 % (0.0-11.0); NEUTROPHIL # 4.8 10^3/ul (1.6-7.5); NEUTROPHILS % 52.6 % (39.0-77.0); PLATELET COUNT 347 10^3/UL (140-415); RED CELL DISTRIBUTION WIDTH 12.3 % (11.5-14.5)
[2017-11-17 07:52] LABS: WHITE BLOOD COUNT 9.2 10^3/ul (4.8-10.8)
[2017-11-17 08:13] LABS: ALANINE AMINOTRANSFERASE 28 IU/L (13-69); ALBUMIN 3.8 g/dl (3.3-4.9); ALBUMIN/GLOBULIN RATIO 1.11; ALKALINE PHOSPHATASE 119 IU/L (42-121); ANION GAP 15 (8-16); ASPARTATE AMINO TRANSFERASE 21 IU/L (15-46); BILIRUBIN,INDIRECT 0.3 mg/dl (0-1.1); BILIRUBIN,TOTAL 0.3 mg/dl (0.2-1.3); BLOOD UREA NITROGEN 60 mg/dl (7-20); CALCIUM 9.5 mg/dl (8.4-10.2); CARBON DIOXIDE 25 mmol/L (21-31); CHLORIDE 107 mmol/L (97-110); CREATININE 1.64 mg/dl (0.44-1.00); GLUCOSE 196 mg/dl (70-220); POTASSIUM 4.6 mmol/L (3.5-5.1); SODIUM 142 mmol/L (135-144); TOTAL PROTEIN 7.2 g/dl (6.1-8.1)
[2017-11-17] MEDS: CALCIUM/VITAMIN D (500/200) TAB PO ×2 (08:13→20:53)
[2017-11-17] MEDS: METOPROLOL (XL) 25 MG TAB PO (08:13)
[2017-11-17] MEDS: GABAPENTIN 300 MG CAP PO ×3 (08:13→20:53)
[2017-11-17] MEDS: LINAGLIPTIN 5 MG TABLET PO (08:13)
[2017-11-17 08:28] LABS: INR 0.94; PROTIME 12.7 Sec (11.9-14.9)
[2017-11-17] MEDS: LACTATED RINGER'S 500 ML IV (10:49)
[2017-11-17] MEDS: DOXAZOSIN 1 MG TAB PO (12:14)
[2017-11-17] MEDS: ALLOPURINOL 100 MG TAB PO (20:53)
[2017-11-17] MEDS: DOXAZOSIN 2 MG TAB PO (21:03)
[2017-11-18] MEDS: DEXAMETHASONE 1 MG TAB PO (01:56)
[2017-11-18] MEDS: ACCU-CHEK XX (02:00)
[2017-11-18] MEDS: INSULIN ASPART [NOVOLOG] 3 ML PEN SC ×5 (02:19→20:59)
[2017-11-18] MEDS: FUROSEMIDE 40 MG TAB PO (05:10)
[2017-11-18 09:02] LABS: ADD MAN DIFF? NO
[2017-11-18] MEDS: CALCIUM/VITAMIN D (500/200) TAB PO ×2 (09:02→20:54)
[2017-11-18] MEDS: METOPROLOL (XL) 25 MG TAB PO (09:02)
[2017-11-18] MEDS: LINAGLIPTIN 5 MG TABLET PO (09:02)
[2017-11-18] MEDS: GABAPENTIN 300 MG CAP PO ×3 (09:02→20:54)
[2017-11-18 09:21] LABS: BASOPHILS % 0.4 % (0.0-2.0); EOSINOPHILS # 0.4 10^3/ul (0.0-0.5); EOSINOPHILS % 4.6 % (0.0-7.0); HEMATOCRIT 35.9 % (37.0-47.0); HEMOGLOBIN 11.7 g/dl (12.0-16.0); LYMPHOCYTES # 1.6 10^3/ul (0.8-2.9); LYMPHOCYTES % 17.1 % (15.0-51.0); MEAN CORPUSCULAR HEMOGLOBIN 29.6 pg (29.0-33.0); MEAN CORPUSCULAR HGB CONC 32.6 g/dl (32.0-37.0); MEAN CORPUSCULAR VOLUME 90.9 fl (82.0-101.0); MEAN PLATELET VOLUME 10.6 fl (7.4-10.4); MONOCYTE # 0.5 10^3/ul (0.3-0.9); NEUTROPHIL # 6.6 10^3/ul (1.6-7.5); NEUTROPHILS % 72.7 % (39.0-77.0); PLATELET COUNT 333 10^3/UL (140-415); RED BLOOD COUNT 3.95 10^6/ul (4.20-5.40); RED CELL DISTRIBUTION WIDTH 12.3 % (11.5-14.5)
[2017-11-18 09:21] LABS: WHITE BLOOD COUNT 9.1 10^3/ul (4.8-10.8)
[2017-11-18 09:33] LABS: ALANINE AMINOTRANSFERASE 33 IU/L (13-69); ALBUMIN 3.8 g/dl (3.3-4.9); ALBUMIN/GLOBULIN RATIO 1.35; ALKALINE PHOSPHATASE 118 IU/L (42-121); ANION GAP 17 (8-16); ASPARTATE AMINO TRANSFERASE 29 IU/L (15-46); BILIRUBIN,INDIRECT 0.2 mg/dl (0-1.1); BILIRUBIN,TOTAL 0.2 mg/dl (0.2-1.3); BLOOD UREA NITROGEN 61 mg/dl (7-20); CALCIUM 9.9 mg/dl (8.4-10.2); CARBON DIOXIDE 25 mmol/L (21-31); CHLORIDE 104 mmol/L (97-110); CREATININE 1.56 mg/dl (0.44-1.00); GLUCOSE 282 mg/dl (70-220); POTASSIUM 4.8 mmol/L (3.5-5.1); SODIUM 141 mmol/L (135-144); TOTAL PROTEIN 6.6 g/dl (6.1-8.1)
[2017-11-18] MEDS: ACETAMINOPHEN 325 MG TAB PO ×2 (11:02→18:42)
[2017-11-18] MEDS: ISOSORBIDE MONONITRATE(SR)30 MG TAB PO (13:34)
[2017-11-18] MEDS: ENOXAPARIN 30 MG/0.3 ML SYG SC (13:35)
[2017-11-18] MEDS: hydrALAzine 20 MG INJ IV ×2 (15:57→17:53)
[2017-11-18 16:21] LABS: COLLECTION PERIOD 24 hrs
[2017-11-18 16:46] LABS: COLLECTION PERIOD 24 hrs
[2017-11-18 18:04] LABS: COLLECTION PERIOD 24 hrs; SCRET 1.56 mg/dl (0.44-1.00); VOLUME 3600 ml/24hrs; VOLUME 3600 mls
[2017-11-18 18:09] LABS: URINE POTASSIUM 27.5 mmol/l
[2017-11-18 18:17] LABS: VOLUME 3600 mls
[2017-11-18 18:38] LABS: CREATININE CLEARANCE 56.1 mls/min (84.0-162.0); CREATININE,URINE RANDOM 35.02 mg/dl (20-320)
[2017-11-18] MEDS: DOCUSATE SODIUM 100 MG CAP PO (20:56)
[2017-11-18] MEDS: DOXAZOSIN 2 MG TAB PO (20:56)
[2017-11-18] MEDS: INSULIN GLARGINE [LANtus] 3 ML PEN SC (21:00)
[2017-11-18] MEDS: ALLOPURINOL 100 MG TAB PO (21:13)
[2017-11-18 21:19] LABS: 24 HR POTASSIUM VOLUME 3600 mls
[2017-11-19] MEDS: ACCU-CHEK XX (02:15)
[2017-11-19 05:38] LABS: ADD MAN DIFF? NO
[2017-11-19 05:45] LABS: BASOPHIL # 0.1 10^3/ul (0.0-0.1); BASOPHILS % 0.8 % (0.0-2.0); EOSINOPHILS # 0.6 10^3/ul (0.0-0.5); EOSINOPHILS % 5.4 % (0.0-7.0); HEMOGLOBIN 10.4 g/dl (12.0-16.0); LYMPHOCYTES # 3.1 10^3/ul (0.8-2.9); LYMPHOCYTES % 30.5 % (15.0-51.0); MEAN CORPUSCULAR HEMOGLOBIN 29.6 pg (29.0-33.0); MEAN CORPUSCULAR HGB CONC 32.5 g/dl (32.0-37.0); MEAN CORPUSCULAR VOLUME 91.2 fl (82.0-101.0); MEAN PLATELET VOLUME 10.5 fl (7.4-10.4); MONOCYTE # 0.7 10^3/ul (0.3-0.9); MONOCYTES % 6.9 % (0.0-11.0); NEUTROPHIL # 5.7 10^3/ul (1.6-7.5); NEUTROPHILS % 55.9 % (39.0-77.0); PLATELET COUNT 309 10^3/UL (140-415); RED BLOOD COUNT 3.51 10^6/ul (4.20-5.40); RED CELL DISTRIBUTION WIDTH 12.3 % (11.5-14.5)
[2017-11-19 05:45] LABS: WHITE BLOOD COUNT 10.1 10^3/ul (4.8-10.8)
[2017-11-19] MEDS: FUROSEMIDE 40 MG TAB PO (05:54)
[2017-11-19 06:11] LABS: ALANINE AMINOTRANSFERASE 32 IU/L (13-69); ALBUMIN 3.5 g/dl (3.3-4.9); ALBUMIN/GLOBULIN RATIO 1.34; ALKALINE PHOSPHATASE 125 IU/L (42-121); ANION GAP 17 (8-16); ASPARTATE AMINO TRANSFERASE 27 IU/L (15-46); BILIRUBIN,INDIRECT 0.2 mg/dl (0-1.1); BILIRUBIN,TOTAL 0.2 mg/dl (0.2-1.3); BLOOD UREA NITROGEN 77 mg/dl (7-20); CALCIUM 9.4 mg/dl (8.4-10.2); CARBON DIOXIDE 26 mmol/L (21-31); CHLORIDE 100 mmol/L (97-110); CREATININE 1.88 mg/dl (0.44-1.00); GLUCOSE 266 mg/dl (70-220); INR 0.89; MAGNESIUM 2.2 mg/dl (1.7-2.5); PHOSPHORUS 5.1 mg/dl (2.5-4.9); POTASSIUM 4.3 mmol/L (3.5-5.1); PROTIME 12.1 Sec (11.9-14.9); PT RATIO 0.9; SODIUM 139 mmol/L (135-144); TOTAL PROTEIN 6.1 g/dl (6.1-8.1)
[2017-11-19] MEDS: INSULIN ASPART [NOVOLOG] 3 ML PEN SC ×5 (07:59→21:32)
[2017-11-19] MEDS: CALCIUM/VITAMIN D (500/200) TAB PO ×2 (08:40→21:19)
[2017-11-19] MEDS: METOPROLOL (XL) 25 MG TAB PO (08:41)
[2017-11-19] MEDS: ISOSORBIDE MONONITRATE(SR)30 MG TAB PO (08:41)
[2017-11-19] MEDS: LINAGLIPTIN 5 MG TABLET PO (08:41)
[2017-11-19] MEDS: GABAPENTIN 300 MG CAP PO ×3 (08:42→21:19)
[2017-11-19] MEDS: ENOXAPARIN 30 MG/0.3 ML SYG SC (08:44)
[2017-11-19 16:12] LABS: CREATININE,URINE RANDOM 26.58 mg/dl (20-320); PROTEIN/CREAT RATIO 3.95 RATIO
[2017-11-19] MEDS: INSULIN GLARGINE [LANtus] 3 ML PEN SC ×2 (19:04→20:23)
[2017-11-19] MEDS: DOXAZOSIN 4 MG TAB PO (21:18)
[2017-11-19] MEDS: ALLOPURINOL 100 MG TAB PO (21:19)
[2017-11-19] MEDS: DOCUSATE SODIUM 100 MG CAP PO (21:19)
[2017-11-20] MEDS: ACCU-CHEK XX (02:32)
[2017-11-20] MEDS: FUROSEMIDE 20 MG TAB PO (06:03)
[2017-11-20 07:50] LABS: ADD MAN DIFF? NO
[2017-11-20 07:54] LABS: WHITE BLOOD COUNT 9.6 10^3/ul (4.8-10.8)
[2017-11-20 07:54] LABS: BASOPHIL # 0.1 10^3/ul (0.0-0.1); BASOPHILS % 0.5 % (0.0-2.0); EOSINOPHILS # 0.6 10^3/ul (0.0-0.5); EOSINOPHILS % 6.3 % (0.0-7.0); HEMATOCRIT 34.5 % (37.0-47.0); LYMPHOCYTES # 2.2 10^3/ul (0.8-2.9); LYMPHOCYTES % 22.9 % (15.0-51.0); MEAN CORPUSCULAR HEMOGLOBIN 29.3 pg (29.0-33.0); MEAN CORPUSCULAR HGB CONC 31.9 g/dl (32.0-37.0); MEAN CORPUSCULAR VOLUME 91.8 fl (82.0-101.0); MEAN PLATELET VOLUME 10.4 fl (7.4-10.4); MONOCYTE # 0.7 10^3/ul (0.3-0.9); MONOCYTES % 7.4 % (0.0-11.0); NEUTROPHILS % 62.6 % (39.0-77.0); PLATELET COUNT 306 10^3/UL (140-415); RED BLOOD COUNT 3.76 10^6/ul (4.20-5.40)
[2017-11-20] MEDS: INSULIN ASPART [NOVOLOG] 3 ML PEN SC ×7 (07:55→21:00)
[2017-11-20] MEDS: GABAPENTIN 300 MG CAP PO ×3 (08:21→20:22)
[2017-11-20] MEDS: CALCIUM/VITAMIN D (500/200) TAB PO ×2 (08:22→20:21)
[2017-11-20] MEDS: LINAGLIPTIN 5 MG TABLET PO (08:22)
[2017-11-20] MEDS: ENOXAPARIN 30 MG/0.3 ML SYG SC (08:22)
[2017-11-20] MEDS: ISOSORBIDE MONONITRATE(SR)30 MG TAB PO (08:23)
[2017-11-20] MEDS: METOPROLOL (XL) 25 MG TAB PO (08:24)
[2017-11-20 08:29] LABS: ANION GAP 17 (8-16); BLOOD UREA NITROGEN 77 mg/dl (7-20); CALCIUM 9.4 mg/dl (8.4-10.2); CARBON DIOXIDE 26 mmol/L (21-31); CHLORIDE 104 mmol/L (97-110); CREATININE 1.97 mg/dl (0.44-1.00); GLUCOSE 293 mg/dl (70-220); POTASSIUM 4.6 mmol/L (3.5-5.1); SODIUM 142 mmol/L (135-144)
[2017-11-20] MEDS: ACETAMINOPHEN 325 MG TAB PO ×2 (09:59→16:51)
[2017-11-20] MEDS: THIAMINE 100 MG TAB PO (13:12)
[2017-11-20 17:24] LABS: ADD UMIC YES; UR ASCORBIC ACID NEGATIVE (NEGATIVE); UR BACTERIA FEW /HPF (NONE SEEN); UR BILIRUBIN (Dip) NEGATIVE (NEGATIVE); UR BLOOD (Dip) NEGATIVE (NEGATIVE); UR CLARITY CLEAR (CLEAR); UR COLOR STRAW (YELLOW); UR GLUCOSE (Dip) NEGATIVE (NEGATIVE); UR KETONES (Dip) NEGATIVE (NEGATIVE); UR LEUKOCYTE ESTERASE (Dip) TRACE Leu/ul (NEGATIVE); UR NITRITE (Dip) NEGATIVE (NEGATIVE); UR RBC 1 /HPF (0-5); UR SPECIFIC GRAVITY (Dip) 1.006 (1.003-1.030); UR TOTAL PROTEIN (Dip) 2+ mg/dl (NEGATIVE); UR UROBILINOGEN (Dip) NEGATIVE (NEGATIVE); UR WBC 1 /HPF (0-5)
[2017-11-20] MEDS ORDERED: INSULIN GLARGINE [LANtus] 3 ML PEN SC (20:00)
[2017-11-20] MEDS: DOXAZOSIN 4 MG TAB PO (20:22)
[2017-11-20] MEDS: ALLOPURINOL 100 MG TAB PO (20:22)
[2017-11-20] MEDS: DOCUSATE SODIUM 100 MG CAP PO (20:22)
[2017-11-20] MEDS: INSULIN GLARGINE [LANtus] 3 ML PEN SC (20:31)
[2017-11-21] MEDS: ACCU-CHEK XX (02:02)
[2017-11-21] MEDS: morphine LIQ (10 MG/5 ML) CUP PO (03:31)
[2017-11-21] MEDS: hydrALAzine 20 MG INJ IV (04:27)
[2017-11-21] MEDS: FUROSEMIDE 20 MG TAB PO (05:27)
[2017-11-21 06:32] LABS: ADD MAN DIFF? NO
[2017-11-21 06:37] LABS: WHITE BLOOD COUNT 10.6 10^3/ul (4.8-10.8)
[2017-11-21 06:37] LABS: BASOPHIL # 0.1 10^3/ul (0.0-0.1); BASOPHILS % 0.6 % (0.0-2.0); EOSINOPHILS # 0.7 10^3/ul (0.0-0.5); EOSINOPHILS % 6.6 % (0.0-7.0); HEMATOCRIT 33.7 % (37.0-47.0); HEMOGLOBIN 10.9 g/dl (12.0-16.0); LYMPHOCYTES # 2.8 10^3/ul (0.8-2.9); LYMPHOCYTES % 26.2 % (15.0-51.0); MEAN CORPUSCULAR HEMOGLOBIN 29.9 pg (29.0-33.0); MEAN CORPUSCULAR HGB CONC 32.3 g/dl (32.0-37.0); MEAN CORPUSCULAR VOLUME 92.3 fl (82.0-101.0); MEAN PLATELET VOLUME 10.8 fl (7.4-10.4); MONOCYTE # 0.7 10^3/ul (0.3-0.9); NEUTROPHIL # 6.3 10^3/ul (1.6-7.5); NEUTROPHILS % 59.1 % (39.0-77.0); PLATELET COUNT 309 10^3/UL (140-415); RED BLOOD COUNT 3.65 10^6/ul (4.20-5.40); RED CELL DISTRIBUTION WIDTH 12.1 % (11.5-14.5)
[2017-11-21 07:07] LABS: ALANINE AMINOTRANSFERASE 34 IU/L (13-69); ALBUMIN 3.5 g/dl (3.3-4.9); ALBUMIN/GLOBULIN RATIO 1.25; ALKALINE PHOSPHATASE 123 IU/L (42-121); ANION GAP 16 (8-16); ASPARTATE AMINO TRANSFERASE 25 IU/L (15-46); BILIRUBIN,INDIRECT 0.1 mg/dl (0-1.1); BILIRUBIN,TOTAL 0.1 mg/dl (0.2-1.3); BLOOD UREA NITROGEN 74 mg/dl (7-20); CALCIUM 9.1 mg/dl (8.4-10.2); CARBON DIOXIDE 24 mmol/L (21-31); CHLORIDE 107 mmol/L (97-110); CREATININE 1.76 mg/dl (0.44-1.00); GLUCOSE 259 mg/dl (70-220); POTASSIUM 5.2 mmol/L (3.5-5.1); SODIUM 142 mmol/L (135-144); TOTAL PROTEIN 6.3 g/dl (6.1-8.1)
[2017-11-21] MEDS: LINAGLIPTIN 5 MG TABLET PO (08:31)
[2017-11-21] MEDS: ACETAMINOPHEN 325 MG TAB PO (08:31)
[2017-11-21] MEDS: GABAPENTIN 300 MG CAP PO ×3 (08:31→20:56)
[2017-11-21] MEDS: ISOSORBIDE MONONITRATE(SR)30 MG TAB PO (08:31)
[2017-11-21] MEDS: THIAMINE 100 MG TAB PO (08:32)
[2017-11-21] MEDS: CALCIUM/VITAMIN D (500/200) TAB PO ×2 (08:32→20:56)
[2017-11-21] MEDS: METOPROLOL (XL) 25 MG TAB PO (08:33)
[2017-11-21] MEDS: ENOXAPARIN 30 MG/0.3 ML SYG SC (08:37)
[2017-11-21] MEDS: INSULIN ASPART [NOVOLOG] 3 ML PEN SC ×7 (08:38→20:58)
[2017-11-21] MEDS: traMADol 50 MG TAB GTB (13:58)
[2017-11-21] MEDS: NA POLYST SULFON 15 GM/60 ML BTL PO (17:16)
[2017-11-21] MEDS: DOXAZOSIN 4 MG TAB PO (20:56)
[2017-11-21] MEDS: DOCUSATE SODIUM 100 MG CAP PO (20:56)
[2017-11-21] MEDS: ALLOPURINOL 100 MG TAB PO (20:56)
[2017-11-21] MEDS: INSULIN GLARGINE [LANtus] 3 ML PEN SC (20:57)
[2017-11-22] MEDS: ACCU-CHEK XX (02:48)
[2017-11-22] MEDS: FUROSEMIDE 20 MG TAB PO (05:22)
[2017-11-22] MEDS: ISOSORBIDE MONONITRATE(SR)30 MG TAB PO (08:34)
[2017-11-22] MEDS: CALCIUM/VITAMIN D (500/200) TAB PO (08:34)
[2017-11-22] MEDS: GABAPENTIN 300 MG CAP PO (08:34)
[2017-11-22] MEDS: LINAGLIPTIN 5 MG TABLET PO (08:34)
[2017-11-22] MEDS: THIAMINE 100 MG TAB PO (08:35)
[2017-11-22] MEDS: METOPROLOL (XL) 25 MG TAB PO (08:35)
[2017-11-22] MEDS: INSULIN ASPART [NOVOLOG] 3 ML PEN SC ×4 (08:38→11:49)
[2017-11-22] MEDS: ENOXAPARIN 30 MG/0.3 ML SYG SC (08:39)
[2017-11-22] MEDS: ACETAMINOPHEN 325 MG TAB PO (08:49)
[2017-11-24 09:01] LABS: ALDOSTERONE <1 ng/dL
[2017-11-24 19:21] LABS: RENIN, PLASMA 0.44 ng/mL/h (0.25-5.82)
== END 2017-11-22 12:50 | disposition home or self-care (01) | DRG 682 ==
LOC: E/R 15:11 → MS4 19:20
DX: N17.9 Acute kidney failure, unspecified (principal); I50.33 Acute on chronic diastolic (congestive) heart failure; G93.41 Metabolic encephalopathy; I50.23 Acute on chronic systolic (congestive) heart failure; I13.0 Hypertensive heart and chronic kidney disease with heart failure and stage 1 through stage 4 chronic kidney disease, or unspecified chronic kidney disease; M80.88XA Other osteoporosis with current pathological fracture, vertebra(e), initial encounter for fracture; E11.649 Type 2 diabetes mellitus with hypoglycemia without coma; E11.22 Type 2 diabetes mellitus with diabetic chronic kidney disease; E11.21 Type 2 diabetes mellitus with diabetic nephropathy; E11.3213 Type 2 diabetes mellitus with mild nonproliferative diabetic retinopathy with macular edema, bilateral; N18.3 Chronic kidney disease, stage 3 (moderate); K80.20 Calculus of gallbladder without cholecystitis without obstruction; D63.8 Anemia in other chronic diseases classified elsewhere; R10.11 Right upper quadrant pain; M1A.9XX0 Chronic gout, unspecified, without tophus (tophi); F10.20 Alcohol dependence, uncomplicated; D35.02 Benign neoplasm of left adrenal gland; E66.9 Obesity, unspecified; Z68.29 Body mass index [BMI] 29.0-29.9, adult; E78.5 Hyperlipidemia, unspecified; Z79.4 Long term (current) use of insulin
CPT/HCPCS: 36415; 71045; 74181; 76705; 76775; 78226; 80048; 80053; 80061; 80307; 81001; 81003; 82088; 82382; 82384; 82436; 82533; 82570; 82575; 82962; 83036; 83690; 83735; 83835; 83880; 83930; 83935; 84100; 84133; 84156; 84244; 84300; 84443; 84484; 85025; 85610; 85651; 85730; 89190; 93005; 93306; 96374; 96375; 99285-25

== ENCOUNTER 2017-11-26 16:14 | Outpatient (CLI) | payer OTHER | END 2017-11-26 16:36 | disposition home or self-care (01) | LOC: DCC 16:14 | DX: I50.9 Heart failure, unspecified (principal); I10 Essential (primary) hypertension; E11.8 Type 2 diabetes mellitus with unspecified complications; K80.80 Other cholelithiasis without obstruction; N28.9 Disorder of kidney and ureter, unspecified; F10.10 Alcohol abuse, uncomplicated; Z79.4 Long term (current) use of insulin | CPT/HCPCS: G0463 ==

== ENCOUNTER 2017-12-04 14:16 | Outpatient (CLI) | payer OTHER | END 2017-12-04 16:42 | disposition home or self-care (01) | LOC: DCC 14:16 | DX: I50.9 Heart failure, unspecified (principal); E11.8 Type 2 diabetes mellitus with unspecified complications; I10 Essential (primary) hypertension; K80.20 Calculus of gallbladder without cholecystitis without obstruction; N28.9 Disorder of kidney and ureter, unspecified; Z79.4 Long term (current) use of insulin | CPT/HCPCS: G0463 ==

== ENCOUNTER 2017-12-28 00:46 | Emergency (ER) | payer OTHER ==
[2017-12-28 01:49] LABS: ADD MAN DIFF? NO
[2017-12-28 01:51] LABS: WHITE BLOOD COUNT 12.5 10^3/ul (4.8-10.8)
[2017-12-28 01:51] LABS: BASOPHIL # 0.1 10^3/ul (0.0-0.1); BASOPHILS % 0.4 % (0.0-2.0); EOSINOPHILS # 0.1 10^3/ul (0.0-0.5); HEMATOCRIT 30.5 % (37.0-47.0); HEMOGLOBIN 10.1 g/dl (12.0-16.0); IMMATURE GRANS #M 0.07 10^3/ul; IMMATURE GRANS % (M) 0.6 %; LYMPHOCYTES # 1.6 10^3/ul (0.8-2.9); LYMPHOCYTES % 13.2 % (15.0-51.0); MEAN CORPUSCULAR HEMOGLOBIN 29.7 pg (29.0-33.0); MEAN CORPUSCULAR HGB CONC 33.1 g/dl (32.0-37.0); MEAN CORPUSCULAR VOLUME 89.7 fl (82.0-101.0); MEAN PLATELET VOLUME 9.3 fl (7.4-10.4); MONOCYTE # 0.8 10^3/ul (0.3-0.9); MONOCYTES % 6.3 % (0.0-11.0); NEUTROPHIL # 9.8 10^3/ul (1.6-7.5); NEUTROPHILS % 78.5 % (39.0-77.0); PLATELET COUNT 330 10^3/UL (140-415); RED CELL DISTRIBUTION WIDTH 12.6 % (11.5-14.5)
[2017-12-28 01:55] LABS: URINE BLOOD (Dip) POC Negative (NEGATIVE); URINE GLUCOSE (Dip) POC Negative (NEGATIVE); URINE KETONES (Dip) POC Negative (NEGATIVE); URINE LEUKOCYTE EST (Dip) POC Negative (NEGATIVE); URINE NITRITE (Dip) POC Negative (NEGATIVE); URINE TOTAL PROTEIN POC 3+ (NEGATIVE)
[2017-12-28 02:15] LABS: ALANINE AMINOTRANSFERASE 34 IU/L (13-69); ALBUMIN 3.9 g/dl (3.3-4.9); ALBUMIN/GLOBULIN RATIO 1.11; ALKALINE PHOSPHATASE 146 IU/L (42-121); ANION GAP 15 (8-16); ASPARTATE AMINO TRANSFERASE 30 IU/L (15-46); BLOOD UREA NITROGEN 48 mg/dl (7-20); CARBON DIOXIDE 22 mmol/L (21-31); CHLORIDE 108 mmol/L (97-110); CREATININE 1.81 mg/dl (0.44-1.00); GLUCOSE 94 mg/dl (70-220); LIPASE 99 U/L (23-300); POTASSIUM 3.9 mmol/L (3.5-5.1); SODIUM 141 mmol/L (135-144); TOTAL PROTEIN 7.4 g/dl (6.1-8.1)
[2017-12-28 02:23] LABS: B-TYPE NATRIURETIC PEPTIDE 1110 PG/ML (0-125)
[2017-12-28 03:35] LABS: ETHANOL < 10.0 mg/dl
== END 2017-12-28 05:36 | disposition home or self-care (01) ==
LOC: E/R 00:46
DX: E11.649 Type 2 diabetes mellitus with hypoglycemia without coma (principal); K80.50 Calculus of bile duct without cholangitis or cholecystitis without obstruction; R60.9 Edema, unspecified; D64.9 Anemia, unspecified; I12.9 Hypertensive chronic kidney disease with stage 1 through stage 4 chronic kidney disease, or unspecified chronic kidney disease; N18.9 Chronic kidney disease, unspecified; E11.22 Type 2 diabetes mellitus with diabetic chronic kidney disease; I50.9 Heart failure, unspecified; Z79.4 Long term (current) use of insulin; Z79.82 Long term (current) use of aspirin
CPT/HCPCS: 36415; 71045; 76705; 80053; 80307; 81003; 82962; 83690; 83880; 85025; 93970; 99285-25